=== PATIENT | male | born 1940 | race Caucasian/White ===

== ENCOUNTER 2017-09-06 10:46 | Outpatient (CLI) | payer MEDICARE ==
--- NOTE | 2017-09-06 13:34 | RAD ---
ESOPHOGRAM: History: Dysphagia. FINDINGS: Air contrast and single column barium evaluation of the esophagus show a very small pocket of contras t protruding anteriorly from the upper esophagus at approximately the C6 level. There are prominent n on-propulsive tertiary type contractions of the esophagus with a foal narrowing at the G3 junction. T here is marked delay in passage of liquid contrast. The margins of the narrowing are fairly smooth. Fluoro time equals 1.2 minutes. IMPRESSION: 1. High grade obstruction of the GE junction, favored to represent a stricture. Morphologic character istics are not suggested of an irregular mass. 2. Resultant tertiary contractions of the esophagus. Probable small [place] diverticulum fro m the anterior aspect of the upper esophagus. POS: [facility]
== END 2017-09-06 10:47 | disposition home or self-care (01) ==
LOC: RAD 10:46
PROVIDERS: ATTEND Otolaryngology Plastic Surgery within the Head & Neck
DX: R13.10 Dysphagia, unspecified (principal)
CPT/HCPCS: 74220

== ENCOUNTER 2017-09-24 11:18 | Outpatient (CLI) | payer MEDICARE ==
[2017-09-24] MEDS ORDERED: ISOVUE-370 76%-LOCM 1 ML ONE (11:26)
== END 2017-09-24 11:19 | disposition home or self-care (01) ==
LOC: BICCT 11:18
PROVIDERS: ATTEND Internal Medicine Gastroenterology
DX: K22.9 Disease of esophagus, unspecified (principal)
CPT/HCPCS: 70491; 71260; 74160; 82565

== ENCOUNTER 2017-12-24 19:39 | Inpatient (IN) | payer MEDICARE ==
[2017-12-24 20:22] LABS: #Basophils 0.1 thou/uL (0.0-0.2); #Eosinphils 0.1 thou/uL (0.0-0.7); #Lymphocytes 1.5 thou/uL (1.20-3.40); #Monocytes 0.7 thou/uL (0.11-0.59); #Neutrophils 7.8 thou/uL (1.40-6.50); %Basophils 0.6 % (0.0-1.0); %Eosinophils 0.9 % (0.0-10.0); %Lymphocytes 14.8 % (21.0-51.0); %Monocytes 6.9 % (0.0-10.0); %Neutrophils 76.8 % (42.0-75.0); Hemoglobin 12.6 g/dL (14.0-18.0); Mean Corpuscular HGB CONC 34.1 g/dL (32.0-36.0); Mean Corpuscular Hemoglobin 33.5 pg (27.0-31.0); Mean Corpuscular Volume 98.1 fL (78.0-98.0); Mean Platelet Volume 10.1 fL (7.4-10.4); Platelet Count 228 thou/uL (130-400); RBC Distribution Width 16.1 % (11.5-14.5); Red Blood Cell (RBC) Count 3.77 mill/uL (4.70-6.10); White Blood Cell (WBC) Count 10.1 thou/uL (4.8-10.8)
[2017-12-24 20:43] LABS: ALT (SGPT) 37 U/L (8-55); AST (SGOT) 28 U/L (5-34); Albumin 4.1 g/dL (3.4-4.8); Alkaline Phosphatase 57 U/L (40-150); Anion Gap 26 mmol/L (10-20); Bilirubin, Total 0.6 mg/dL (0.2-1.2); Calc. Creatinine Clearance 0 mL/min (70-130); Calcium 10.3 mg/dL (7.8-10.44); Carbon Dioxide 17 mmol/L (23-31); Chloride 101 mmol/L (98-107); Estimated GFR-MDRD 13; Globulin 4.1 g/dL (2.4-3.5); Glucose 189 mg/dL (83-110); Potassium 5.2 mmol/L (3.5-5.1); Protein, Total 8.2 g/dL (5.8-8.1); Sodium 139 mmol/L (136-145)
[2017-12-24 20:55] LABS: BUN (Urea Nitrogen) 140 mg/dL (8.4-25.7)
--- NOTE | 2017-12-24 20:57 | RAD ---
SINGLE VIEW OF THE CHEST: 12/24/17 COMPARISON: None. HISTORY: Weakness and fall. FINDINGS: Single view of the chest shows a normal sized cardiomediastinal silhouette. There is no evidence of c onsolidation, mass, or pleural effusion. Degenerative changes are seen in the spine and shoulders. IMPRESSION: No evidence of acute cardiopulmonary disease. POS: [facility]
[2017-12-24 20:58] LABS: CKMB 3.3 ng/mL (0-6.6); Troponin I 0.085 ng/mL (< 0.028)
[2017-12-24] MEDS ORDERED: Norepinephrine 8 MG/0.9% NS 250 ML ONE (21:40)
--- NOTE | 2017-12-24 22:08 | RAD ---
SINGLE VIEW OF THE CHEST: 12/24/17 COMPARISON: 12/24/17 at 8:43 p.m. HISTORY: Central line placement. FINDINGS: Single view of the chest shows a normal sized cardiomediastinal silhouette A right IJ central venous catheter is seen with its tip in the superior vena cava. No pneumothorax is seen. There is no evidenc e of consolidation, mass or pleural effusion. IMPRESSION: Status post central line placement without evidence of complication. POS: [facility]
[2017-12-24] MEDS ORDERED: methylPREDNISolone Sod Succ/PF 125 MG/2 ML VIAL ONE (22:41)
[2017-12-24] MEDS ORDERED: Piperacillin/Tazobactam 4.5 GM VIAL ONE (22:41)
[2017-12-25 00:52] LABS: Lactic Acid 2.2 mmol/L (0.5-2.2)
[2017-12-25] MEDS ORDERED: Acetaminophen 325 MG TAB PO PRN (01:16)
[2017-12-25] MEDS ORDERED: Ondansetron HCl/PF 4 MG/2 ML Vial IVP PRN (01:16)
[2017-12-25 02:19] VITALS: BMI 23.4
[2017-12-25] MEDS: Sodium Chloride 0.9% 1,000 ML IV SCH ×4 (02:31→20:46)
[2017-12-25] MEDS ORDERED: Norepinephrine 8 MG/250 ML BAG IVPB PRN (02:55)
[2017-12-25] MEDS ORDERED: HYDROcodone/Acetaminophen 10/325 mg Tablet PO PRN (04:41)
[2017-12-25] MEDS ORDERED: Aspirin 325 MG TAB PO PRN (04:41)
[2017-12-25] MEDS ORDERED: ALPRAZolam 0.5 MG TAB PO PRN (04:41)
[2017-12-25 05:26] LABS: #Lymphocytes 0.4 thou/uL (1.20-3.40); #Monocytes 0.1 thou/uL (0.11-0.59); #Neutrophils 11.1 thou/uL (1.40-6.50); %Eosinophils 0.4 % (0.0-10.0); %Lymphocytes 3.6 % (21.0-51.0); %Monocytes 0.9 % (0.0-10.0); %Neutrophils 95.1 % (42.0-75.0); Hemoglobin 11.9 g/dL (14.0-18.0); Mean Corpuscular Hemoglobin 33.2 pg (27.0-31.0); Mean Corpuscular Volume 97.8 fL (78.0-98.0); Platelet Count 212 thou/uL (130-400); RBC Distribution Width 16.4 % (11.5-14.5); Red Blood Cell (RBC) Count 3.58 mill/uL (4.70-6.10); White Blood Cell (WBC) Count 11.7 thou/uL (4.8-10.8)
[2017-12-25 05:41] LABS: Anion Gap 20 mmol/L (10-20); Calc. Creatinine Clearance 19 mL/min (70-130); Calcium 9.1 mg/dL (7.8-10.44); Carbon Dioxide 17 mmol/L (23-31); Chloride 108 mmol/L (98-107); Estimated GFR-MDRD 18; Glucose 165 mg/dL (83-110); Potassium 5.2 mmol/L (3.5-5.1); Sodium 140 mmol/L (136-145)
[2017-12-25 05:48] LABS: Troponin I 0.066 ng/mL (< 0.028)
[2017-12-25 05:50] LABS: Bilirubin Negative (Negative); Blood, Urine Moderate (Negative); Clarity CLOUDY (Clear); Glucose, Urine (Dipstick) 250 mg/dL (Negative); Leukocyte Trace (Negative); Nitrite Negative (Negative); Protein, Urine (Dipstick) Trace mg/dL (Neg-Trace); Specific Gravity, Urine 1.012 (1.002-1.036); Urobilinogen 0.2 mg/dL (0.2-1.0)
[2017-12-25 05:53] LABS: BUN (Urea Nitrogen) 119 mg/dL (8.4-25.7); Bacteria/HPF None Seen HPF (None Seen); Hyaline Casts/LPF 0-3 HYALINE CAST LPF (0-3 Hyaline); Pathc Cast-AUWi Flag 0.72 (0-2.49); Squamous Epithelial 0-3 HPF (0-3)
[2017-12-25 06:00] LABS: Yeast-AUWi Flag 42.3 (0-25.0); Yeast-All Forms None Seen HPF (None Seen)
[2017-12-25] MEDS ORDERED: Piperacillin/Tazobactam 2.25 GM in Sodium Chloride 0.9% 100 ML IVPB SCH (06:00)
--- NOTE | 2017-12-25 06:43 | HP ---
PRIMARY CARE PHYSICIAN: Patient goes to [facility]. CODE STATUS: FULL CODE. TIME OF EVALUATION: 7:50 p.m. CHIEF COMPLAINT: Generalized weakness and inability to drink or eat. HISTORY OF PRESENT ILLNESS: This is a 77-year-old male patient. The patient has a past medical history of esophageal cancer. The patient has been treated before by Dr. Baird, Dr. Bacon and since previous admission the patient tolerated the meals p.o.; however, as of now, he has got to the point that he has been unable to drink or eat, not even liquids, and has had continuously vomiting or bringing up all of the meals that he tries at home. He also reported he has been having a shocking sensation when he eats, that has been severe, does not get better, and he presented with severe weakness, dehydration. I have discussed goals of care with the patient and he reported that he is not ready to at this point that he would like to have a better quality of life at this point. He is also considering the possibility for a PEG tube. As a note, the patient is mentally very clear and coherent, he understands his disease, but he wants to continue receiving medical treatment with goals to have the best life possible. Symptoms are severe, no alleviating factors. REVIEW OF SYSTEMS: CONSTITUTIONAL: No fever, no chills. The patient has generalized weakness. RESPIRATORY: The patient has a cough with choking episode when eating, no sputum production, the patient had shortness of breath. CARDIOVASCULAR: No chest pain or palpitations. GASTROINTESTINAL: The patient had nausea, vomiting, no diarrhea, no abdominal pain. RE EXAMINER: No dizziness, headache or feeling lightheaded. GENITOURINARY: No burning on urination. EXTREMITIES: No leg swelling. All other systems were reviewed and negative except for the findings mentioned above. PAST MEDICAL HISTORY: Has been positive for TIA, PAD, esophageal cancer, hypertension, high cholesterol. PSYCH HISTORY: The patient has a history of anxiety and depression. FAMILY HISTORY: The patient has a history of mother healthy and father diabetic. ALLERGIES: No known drug allergies. REPORTED MEDICATIONS: Prinivil, simvastatin. PHYSICAL EXAMINATION: VITAL SIGNS: On presentation, blood pressure 75/49 with heart rate 103, respiratory rate of 20, temperature 97.6, pain 10/10, oxygen saturation 93. GENERAL APPEARANCE: The patient is alert, well oriented, in good mood, no acute distress. HEENT: Eyes; normal conjunctivae, very dry oral mucosa. Anicteric. NECK: No JVD. RESPIRATORY: Bilateral air entry. No rales, no wheezing. Symmetric expansion. CARDIOVASCULAR: The patient was tachycardic, hypotensive. No murmurs, no gallop, no edema. ABDOMEN: Soft, normal bowel sounds. MUSCULOSKELETAL: Normal range of motion and strength. No tenderness. SKIN: Warm, intact, dry, no redness. Peripheral pulses are present. Capillary refill seems to be intact. NEUROLOGIC: Baseline sensory. No evidence of any new focal weakness. Baseline speech. Cranial nerves seems to be intact. PSYCHIATRIC: The patient is in a good mood. No anxiety, oriented, optimal judgment. EKG was discussed with the performing physician from the ER. The patient has sinus tachycardia with a rate of 130, with complete right bundle branch block, QT corrected 456. It is mildly prolonged for a male patient. Radiology interpretation; chest x-ray was negative for any cardiopulmonary process. LABORATORY DATA: Labs were reviewed. The patient has a white count of 10, hemoglobin 12, MCV 98, platelet count 228, neutrophils 76. Sodium 139, potassium 5.2, chloride 101, carbon dioxide 17, anion gap 26, BUN 140, creatinine 4.45, GFR 13, glucose 186. Lactic acid on presentation 4.1, repeat 12.2, calcium 10.3, magnesium 1.6, total bilirubin 0.6, AST 28, ALT 37, alkaline phosphatase 57, CK 671 with first troponin 0.085. ASSESSMENT AND PLAN: The patient will be placed in the hospital with following medical problems: 1. Shock, most likely hypovolemic due to dehydration and poor oral intake secondary to esophageal stricture due to cancer. The patient has received significant amount of fluids, patient had been placed on vasopressors in the ER. We will continue for now, we will continue hydration and we will taper down the vasopressors if possible. Other possibilities of the septic shock given this is an immunocompromised host, for that reason he was covered with antibiotics, we will follow cultures, will adjust treatment as needed. 2. Severe dehydration, likely secondary to poor oral intake for weeks, the patient has been unable to eat due to esophageal cancer, treatment as below. 3. Dysphagia, the patient is unable to even drink fluids, for that reason, likely got dehydrated, and has been with very poor nutrition. GI has been consulted for recommendations to see if any palliative treatment can be offered , otherwise have discussed with the patient possibility for PEG tube placement or treatment. The patient is going to evaluate the possibility. 4. Severe lactic acidosis with lactic acid 4.1, ____ 2.2, this could be secondary to persistent hypotension and physical hypoxia, might be also secondary to possibility of underlying sepsis, treatment as above. 5. Acute kidney injury. The patient has a creatinine of 4.5, and previous admission was normal, GFR is 13. The patient has received aggressive hydration. We will monitor kidney function, if not recovering might need Nephrology for evaluation and assistance with this case. 6. Hyperkalemia. Potassium 5.2, this is mild, no need for acute intervention, patient already getting aggressive hydration, this is likely secondary to acute kidney injury. 7. Borderline troponin of 0.085, we will trend troponins, this is likely secondary to a [id number] elevation myocardial infarction x2. Due to persistent hypotension and demand ischemia. Anion gap metabolic acidosis likely secondary to acute kidney injury, patient has received aggressive hydration. We will monitor. Will adjust treatment as needed. 8. Deep venous thrombosis prophylaxis. 9. Esophageal cancer. The patient has had treatment in the past with Dr. Bacon, patient will need to be seen, and further goals of care to be discussed. The patient reported that he wants medical treatment, but the possibilities are going to be mostly related to Dr. Bacon opinion. The patient could also benefit from Palliative Care consult. 10. Uncontrolled hypertension. Patient presented with hypotension, we will reconcile home meds, will not treat aggressively due to risk for shock. CHLOÉ
--- NOTE | 2017-12-25 06:51 | PDOC.PULCN ---
<Patricia Alves - Last Filed: 12/25/17 10:42> Pulmonology Consult: HPI - Date of Consult Date: 12/25/17 Time: 08:30 - Consult Details Reason for Consult: ICU Admission Requesting Physician: Dr. Youngblood, ED Physician - History of Present Illness HPI: KAL HOUGH is a 77 year-old M with PMH of esophageal cancer diagnosed 3 months ago, s/p chemo and radiation treatment who presented to ED for generalized weakness, poor appetite, and dysphagia. He follows with Dr. Bacon, oncology, and Dr. Baird, GI. His f/u appt was scheduled for Jan 06. Over the course of the last month, son and patient report that he has had a severe decline in functional status. He used to walk up to 25ft with walker and is now reliant on help for most all ADL's, even difficulty with standing on his own. Due to his continued dysphagia, he has not been able to eat or drink much at all. In the ED he was found to have hypotension (70's/40's) which did not respond to 2L NS, therefore Levophed was started. Pulmonology Consult: ROS - Review of Systems Constitutional: negative: fever, chills Cardiovascular: negative: chest pain, palpitations, edema, light headedness Respiratory: cough. negative: bloody sputum, congestion, chest soreness, chest tightness, pain on deep breathing, short of breath Pulmonology Consult: PMH Source: patient, family Past Medical History: 1. Esophageal cancer 2. Hx of TIA 3. PAD 4. HTN 5. HLD 6. Anxiety 7. Depression - Family History Family history: reviewed and not pertinent - Social History Smoking Status: Former smoker (quit 4 days ago) Alcohol Use: heavy (Has not been drinking since dx of esophageal cancer. Used to drink "several" beers per day.) Drug Use History: none Living Situation: independent Pulmonology Consult: Meds - Medications MAR Reviewed: Yes Medications: Current Medications Acetaminophen (Tylenol) 650 mg PO Q4H PRN PRN Reason: Headache/Fever or Pain Hydrocodone Bitart/Acetaminophen ([place] 10/325) 1 tab PO Q4H PRN PRN Reason: Moderate to Severe Pain (4-10) Alprazolam (Xanax) 0.5 mg PO BIDPRN PRN PRN Reason: Agitation Aspirin (Aspirin) 325 mg PO DAILYPRN PRN PRN Reason: Pain Clopidogrel Bisulfate (Plavix) 75 mg PO DAILY [facility] Heparin Sodium (Porcine) (Heparin) 5,000 units SC TID [facility] Sodium Chloride (Normal Saline 0.9%) 1,000 mls @ 100 mls/hr IV .Q10H [facility] Last Admin: 12/25/17 02:31 Dose: 1,000 mls Piperacillin Sod/Tazobactam (Sod 2.25 gm/ Sodium Chloride) 100 mls @ 200 mls/ hr IVPB Q8HR [facility] Last Admin: 12/25/17 05:47 Dose: 100 mls Norepinephrine Bitartrate (Levophed) 250 mls @ 0 mls/hr IVPB INF PRN; Protocol PRN Reason: TO KEEP SBP => 90, MAP => 65 Miscellaneous Medication (Pharmacy To Dose) 1 each IVPB PRN PRN PRN Reason: Pharmacy to dose Ondansetron HCl (Zofran) 4 mg IVP Q6H PRN PRN Reason: Nausea/Vomiting Pantoprazole Sodium (Protonix) 40 mg PO DAILY [facility] Simvastatin (Zocor) 40 mg PO DAILY [facility] Sodium Chloride (Flush - Normal Saline) 10 ml IVF Q12HR [facility] Sodium Chloride (Flush - Normal Saline) 10 ml IVF PRN PRN PRN Reason: Saline Flush - Allergies Allergies/Adverse Reactions: Allergies Allergy/AdvReac Type Severity Reaction Status Date / Time No Known Allergies Allergy Verified 12/25/17 03:50 Pulmonology Consult: PE - Physical Exam Constitutional: NAD Deviation from normal: resting comfortably, conversational HEENT: PERRLA, moist MMs Neck: no nodes Deviation from normal: R IJ in place with dry dressing Cardiovascular: RRR, no significant murmur Respiratory: clear to auscultation anteriorly (although breath sounds are distant) Gastrointestinal: soft, non-tender, no distention Musculoskeletal: no edema, pulses present Neurological: non-focal, moves all 4 limbs Deviation from normal: LLE strength 3/5 (baseline per patient due to PAD), RLE and UE 5/5 Psychiatric: normal affect, A&O x 3 Skin: cap refill <2 seconds Pulmonology Consult: Results - Labs Result Diagrams: 12/25/17 04:52 12/25/17 04:52 - Radiology Interpretation Chest x-ray Status: image reviewed by me, report reviewed by me Pulmonology Consult: A/P - Problem (1) Hypovolemic shock Current Visit: Yes Code(s): R57.1 - HYPOVOLEMIC SHOCK Status: Acute (2) Failure to thrive in adult Current Visit: Yes Status: Acute (3) Esophageal cancer Current Visit: Yes Status: Acute (4) LUCIANO (acute kidney injury) Current Visit: Yes Code(s): N17.9 - ACUTE KIDNEY FAILURE, UNSPECIFIED Status : Acute - Time Time: 50% of the time was spent in coordination of care (as documented) at patient's floor/unit and/or counseling patient. Time with Patient: greater than 50 minutes - Plan Plan: 1. Hypovolemic Shock 2/2 Failure to Thrive- Patient severely dehydrated. UOP 50ml/hr. Will continue maitenance IVF and Levophed. Wean levophed as tolerated. No source for infection so we will stop Abx. Multiple electrolyte abnormalities likely related to this, will rehydrate and continue to monitor. 2. Esophageal Cancer- unsure if any improvement after chemo/radiation. Dr. Bacon and Dr. Baird have been consulted. Patient currently unsure if he would like to continue curative measures. Discussed need for PEG tube vs hospice. Palliative care has also been consulted to discuss further. 3. LUCIANO 2/2 Prerenal Azotemia- Cr has downtrended from 4.4 to 3.4 with a baseline of 0.9. Will continue IVF. Lines: R IJ (12/24), peripheral x2 (12/24) Code Status: Full Specialists: Oli (GI)Jordi (Onc) IVF: NS @ 100ml/hr DVT PPx: Lovenox GI PPx: Protonix <[id number] M - Last Filed: 12/27/17 16:58> Pulmonology Consult: HPI - History of Present Illness HPI: KAL HOUGH is a 77 year-old M Pulmonology Consult: Meds - Medications Medications: Current Medications Acetaminophen (Tylenol) 650 mg PO Q4H PRN PRN Reason: Headache/Fever or Pain Hydrocodone Bitart/Acetaminophen ([place] 10/325) 1 tab PO Q4H PRN PRN Reason: Severe Pain (7-10) Hydrocodone Bitart/Acetaminophen ([place] 5/325) 1 tab PO Q4H PRN PRN Reason: Moderate Pain (4-6) Last Admin: 12/26/17 17:14 Dose: 1 tab Al Hydroxide/Mg Hydroxide (Maalox) 15 ml PO Q4H PRN PRN Reason: Heartburn or Indigestion Alprazolam (Xanax) 0.5 mg PO BIDPRN PRN PRN Reason: Agitation Artificial Tears (Tears Naturale) 0 drop EA EYE PRN PRN PRN Reason: Dry Eyes Aspirin (Aspirin) 325 mg PO DAILYPRN PRN PRN Reason: Pain Clopidogrel Bisulfate (Plavix) 75 mg PO DAILY [facility] Last Admin: 12/27/17 09:27 Dose: 75 mg Guaifenesin (Robitussin Sf) 200 mg PO Q4H PRN PRN Reason: Cough Heparin Sodium (Porcine) (Heparin) 5,000 units SC TID [facility] Last Admin: 12/27/17 09:28 Dose: 5,000 units Hydralazine HCl (Apresoline) 10 mg SLOW IVP Q4H PRN PRN Reason: Systolic BP > 180 Sodium Chloride (1/2 Normal Saline) 1,000 mls @ 100 mls/hr IV .Q10H [facility] Last Admin: 12/27/17 00:45 Dose: 1,000 mls Loperamide HCl (Imodium) 2 mg PO PRN PRN PRN Reason: Diarrhea/Loose Stools Loratadine (Claritin) 10 mg PO DAILYPRN PRN PRN Reason: Sinus Symptoms Magnesium Hydroxide (Milk Of Magnesium) 30 ml PO DAILYPRN PRN PRN Reason: Constipation Mineral Oil/White Petrolatum (Eucerin Cream) 0 gm TOP BIDPRN PRN PRN Reason: Dry Skin Ondansetron HCl (Zofran) 4 mg IVP Q6H PRN PRN Reason: Nausea/Vomiting Ondansetron HCl (Zofran Odt) 4 mg PO Q6H PRN PRN Reason: Nausea/Vomiting Pantoprazole Sodium (Protonix) 40 mg IVP Q12HR [facility] Last Admin: 12/27/17 09:28 Dose: 40 mg Phenol (Chloraseptic [place] 180 Ml Bot) 0 ml PO PRN PRN PRN Reason: Sore Throat Senna (Senokot) 2 tab PO HSPRN PRN PRN Reason: Constipation Simvastatin (Zocor) 40 mg PO DAILY [facility] Last Admin: 12/27/17 09:28 Dose: 40 mg Sodium Chloride (Flush - Normal Saline) 10 ml IVF Q12HR [facility] Last Admin: 12/27/17 09:30 Dose: Not Given Sodium Chloride (Flush - Normal Saline) 10 ml IVF PRN PRN PRN Reason: Saline Flush Last Admin: 12/27/17 09:31 Dose: 10 ml Sodium Chloride ([place] Nasal [place] 0.65%) 0 ml EA NARE QIDPRN PRN PRN Reason: Nasal Congestion Temazepam (Restoril) 15 mg PO HSPRN PRN PRN Reason: Insomnia Pulmonology Consult: Results - Labs Result Diagrams: 12/27/17 04:16 12/27/17 04:16 Pulmonology Consult: A/P - Time Time: 50% of the time was spent in coordination of care (as documented) at patient's floor/unit and/or counseling patient. Attending Addendum - Attending Addendum Date/Time: 12/27/17 251 I personally evaluated the patient and discussed the management with Dr. Alves. I agree with the History, Examination, Assessment and Plan documented above with any addition or exceptions noted below. 70 minutes have been devoted to this patient in various activities. I personally reviewed all imaging studies and laboratory data noted within this document. For fifty percent of this time, I was interacting with the patient at the bedside or coordinating care with the care team. For the remainder of the time I was immediately available to the patient in the hospital unit.
[2017-12-25] MEDS: Simvastatin 40 MG TAB PO SCH (08:40)
[2017-12-25] MEDS: Clopidogrel Bisulfate 75 MG TAB PO SCH (08:40)
[2017-12-25] MEDS: Heparin 5,000 UNITS/ML VIAL SC SCH ×3 (08:40→20:47)
--- NOTE | 2017-12-25 11:53 | PDOC.PN ---
- Subjective Encounter Start Date: 12/25/17 Encounter Start Time: 09:45 -: old records requested/rev Patient seen and examined. No new complaints. No overnight events pt is on levophed drip - Objective Resuscitation Status: Resuscitation Status FULL:Full Resuscitation MAR Reviewed: Yes Vital Signs & Weight: Vital Signs (12 hours) Temp Pulse Resp Pulse Ox 12/25/17 08:00 100 12/25/17 04:00 98.5 F 12/25/17 02:00 98 F 93 15 92 L Weight Weight 163 lb 5.8 oz Most Recent Monitor Data Heart Rate from ECG 81 NIBP 130/46 NIBP BP-Mean 73 Respiration from ECG 18 SpO2 100 I&O: 12/24/17 12/25/17 12/26/17 06:59 06:59 06:59 Intake Total 608 Output Total 350 Balance 258 Result Diagrams: 12/25/17 04:52 12/25/17 04:52 EKG Reviewed by me: Yes (nsr) Phys Exam - Physical Examination Constitutional: NAD HEENT: PERRLA, sclera anicteric dry MM Neck: no JVD, supple Respiratory: no wheezing, no rales, no rhonchi Cardiovascular: RRR, no significant murmur, no rub Gastrointestinal: soft, non-tender, no distention, positive bowel sounds Musculoskeletal: no edema, pulses present Neurological: non-focal, normal sensation Psychiatric: normal affect, A&O x 3 Skin: no rash, normal turgor Dx/Plan (1) Acute kidney failure Status: Acute (2) Demand ischemia Code(s): I24.8 - OTHER FORMS OF ACUTE ISCHEMIC HEART DISEASE Status: Acute (3) Failure to thrive in adult Status: Acute (4) Hyperkalemia Code(s): E87.5 - HYPERKALEMIA Status: Acute (5) Hypovolemic shock Code(s): R57.1 - HYPOVOLEMIC SHOCK Status: Acute (6) Lactic acidosis Code(s): E87.2 - ACIDOSIS Status: Acute (7) Severe dehydration Code(s): E86.0 - DEHYDRATION Status: Acute (8) UTI (urinary tract infection) Status: Suspected (9) Anemia of chronic disease Code(s): D63.8 - ANEMIA IN OTHER CHRONIC DISEASES CLASSIFIED ELSEWHERE Status : Chronic (10) Anxiety and depression Code(s): F41.9 - ANXIETY DISORDER, UNSPECIFIED; F32.9 - MAJOR DEPRESSIVE DISORDER, SINGLE EPISODE, UNSPECIFIED Status: Chronic (11) Dyslipidemia Code(s): E78.5 - HYPERLIPIDEMIA, UNSPECIFIED Status: Chronic (12) Dysphagia Code(s): R13.10 - DYSPHAGIA, UNSPECIFIED Status: Chronic (13) GERD (gastroesophageal reflux disease) Code(s): K21.9 - GASTRO-ESOPHAGEAL REFLUX DISEASE WITHOUT ESOPHAGITIS Status: Chronic (14) History of esophageal cancer Code(s): Z85.01 - PERSONAL HISTORY OF MALIGNANT NEOPLASM OF ESOPHAGUS Status: Chronic (15) Hypertension Code(s): I10 - ESSENTIAL (PRIMARY) HYPERTENSION Status: Chronic - Plan cont current plan of care * continue IVF * wean off levophed as tolerated * medication reviewed as below * symptomatic treatment * monitor renal function * will need peg tube this admission once pt makes decision. * follow urine culture result Review of Systems - Review of Systems ENT: negative: Ear Pain, Ear Discharge, Nose Pain, Nose Discharge, Nose Congestion, Mouth Pain, Mouth Swelling, Throat Pain, Throat Swelling, Other Respiratory: negative: Cough, Dry, Shortness of Breath, Hemoptysis, SOB with Excertion, Pleuritic Pain, Sputum, Wheezing Cardiovascular: negative: chest pain, palpitations, orthopnea, paroxysmal nocturnal dyspnea, edema, light headedness, other Gastrointestinal: negative: Nausea, Vomiting, Abdominal Pain, Diarrhea, Constipation, Melena, Hematochezia, Other Genitourinary: negative: Dysuria, Frequency, Incontinence, Hematuria, Retention , Other Musculoskeletal: negative: Neck Pain, Shoulder Pain, Arm Pain, Back Pain, Hand Pain, Leg Pain, Foot Pain, Other Skin: negative: Rash, Lesions, Gino, Bruising, Other - Medications/Allergies Allergies/Adverse Reactions: Allergies Allergy/AdvReac Type Severity Reaction Status Date / Time No Known Allergies Allergy Verified 12/25/17 03:50 Medications: Current Medications Acetaminophen (Tylenol) 650 mg PO Q4H PRN PRN Reason: Headache/Fever or Pain Hydrocodone Bitart/Acetaminophen ([place] 10/325) 1 tab PO Q4H PRN PRN Reason: Moderate to Severe Pain (4-10) Alprazolam (Xanax) 0.5 mg PO BIDPRN PRN PRN Reason: Agitation Aspirin (Aspirin) 325 mg PO DAILYPRN PRN PRN Reason: Pain Clopidogrel Bisulfate (Plavix) 75 mg PO DAILY [facility] Last Admin: 12/25/17 08:40 Dose: 75 mg Heparin Sodium (Porcine) (Heparin) 5,000 units SC TID [facility] Last Admin: 12/25/17 08:40 Dose: 5,000 units Sodium Chloride (Normal Saline 0.9%) 1,000 mls @ 100 mls/hr IV .Q10H [facility] Last Admin: 12/25/17 02:31 Dose: 1,000 mls Norepinephrine Bitartrate (Levophed) 250 mls @ 0 mls/hr IVPB INF PRN; Protocol PRN Reason: TO KEEP SBP => 90, MAP => 65 Last Admin: 12/25/17 08:52 Dose: 250 mls Miscellaneous Medication (Pharmacy To Dose) 1 each IVPB PRN PRN PRN Reason: Pharmacy to dose Ondansetron HCl (Zofran) 4 mg IVP Q6H PRN PRN Reason: Nausea/Vomiting Pantoprazole Sodium (Protonix) 40 mg PO DAILY [facility] Last Admin: 12/25/17 08:40 Dose: 40 mg Simvastatin (Zocor) 40 mg PO DAILY [facility] Last Admin: 12/25/17 08:40 Dose: 40 mg Sodium Chloride (Flush - Normal Saline) 10 ml IVF Q12HR [facility] Last Admin: 12/25/17 08:41 Dose: 10 ml Sodium Chloride (Flush - Normal Saline) 10 ml IVF PRN PRN PRN Reason: Saline Flush
--- NOTE | 2017-12-25 20:34 | CON ---
DATE OF CONSULTATION: 12/25/2017 REASON FOR CONSULTATION: Dysphagia, worsening; history of esophageal cancer, status post treatment; 40 pound weight loss in the last 4 weeks. HISTORY OF PRESENT ILLNESS: Mr. Contreras is a 77-year-old gentleman, who was diagnosed with esophagea l cancer by Dr. Alfonso Baird my partner in the outpatient EGD on 09/20/2017. The patient states since that time, he was treated with radiation and chemotherapy. This tumor was apparently proximal in the esophagus and was squamous cell at 21-26 cm from incisural orifice. He states he was evaluated by Ericka eubanks and they felt there was no involvement of the trachea or upper respiratory tract system. In any event, he finished his last radiation about 4 weeks ago. He is going to get one more course of chemo following that, but he was having problems with activities of daily living and hydration. He h ad been given a bunch of fluid when he came back in for chemo and that was drawn held and the patient 's son notes he was in the emergency room 2 weeks ago and had to be given 5 liters of fluid sec ondary to dehydration as he really was unable to eat at all or drink very much. Presently, he is abl e to drink liquids. He has no pain. He has no cough. He denies recent aspiration symptoms of cough ing or choking with swallowing or any recent pneumonia. The patient's son state they have discussed PEG tube placement a couple times with Oncology, but this has not been done yet. They are not know t he stage of his cancer, but states that it was not involving other organ just the esophagus. Here he came in with profound dehydration and hypotension. His creatinine was 4.5 and his BUN is 140, today they are 1.19 and 344, his potassium was 5.2, it is 5.2 today. He had a mildly elevated white count of 11.7 today, hemoglobin 11.8, platelet count of 212. He has had no diarrhea. He has had no overt signs of bleeding. He has had Hemoccult negative stool. He has blood cultures, which are pending. A chest x-ray was performed last night in the emergency room showed central line placement. No infi ltrate. A barium swallow in August showed a high-grade obstruction in the esophagus and he had a CT sca n 09/24/2017 showed infiltrating mass upper thoracic esophagus, T3-T4 level, that was concerned for i nvasion of the posterior wall of the trachea in that study. Again, the patient states Pulmonary did not find any obvious involvement of the pulmonary tree. PAST MEDICAL HISTORY: TIA; peripheral artery disease; esophageal cancer, squamous; hyperlipidemia; h ypertension. The patient states he had a history of coronary artery disease. PAST SURGICAL HISTORY: None. PSYCHIATRIC HISTORY: Depression, anxiety. FAMILY HISTORY: Noncontributory. ALLERGIES: None known MEDICATIONS: Prinivil and simvastatin. REVIEW OF SYSTEMS: Weight loss. No headaches, no chest pain, no cough, no dysuria. No frequency, n o urgency. No melena, no hematemesis, no abdominal pain, no prior abdominal surgeries. PRESENT MEDICATIONS: Protonix 40 p.o. daily, simvastatin, normal saline 100 an hour. PHYSICAL EXAMINATION: VITAL SIGNS: Temperature is 98.5, heart rate 82, blood pressure 112/47. HEENT: Oropharynx without lesions. NECK: Supple, without adenopathy or masses. Supraclavicular areas, no nodes. No umbilical nodes, n o inguinal nodes: No axillary nodes. LUNGS: Clear. HEART: Regular rate and rhythm without clicks or murmurs. ABDOMEN: Soft and nontender. There is no palpable hepatosplenomegaly. There are no scars in the up per abdomen. The abdomen is nondistended. EXTREMITIES: Reveal no clubbing, cyanosis or edema. LABORATORY STUDIES: White count 11.7, hemoglobin 11.9, platelet count 211. Electrolytes as noted ab ove. Liver function tests, protein was 8.2, albumin was 4.1. AST and ALT 28 and 37. ASSESSMENT: Severe dehydration secondary to poor oral intake related to esophageal squamous cell car cinoma, status post radiation and chemotherapy. Likely has a stricture from treatment effect. He co uld have residual cancer. He has got pretty dehydrated. It seems like he had 5 liters of fluid 2 we eks ago . At this time, he came with a BUN and creatinine of 140 and 4.5. He probably has a ve ry significant stricture. I think a PEG tube would be reasonable. I have discussed with the patient and the son the risks of the procedure also discussed the possibly that if he has a significant stri cture, we may not be able to get past it to place a PEG tube. RECOMMENDATIONS: 1. Esophagogastroduodenoscopy with possible PEG tube placement tomorrow. Risks, benefits and compli cations were discussed. 2. IV PPI q.12 hours. 3. I would increase his IV fluid rate. He is very dehydrated and wean his pressors. If he is not a ble to get off pressors, we will need to await until that is done before he has any type of interven tion as this was nonemergent.
[2017-12-25] MEDS: Pantoprazole 40 MG VIAL IVP SCH (20:46)
[2017-12-26 04:54] LABS: Anion Gap 13 mmol/L (10-20); BUN (Urea Nitrogen) 84 mg/dL (8.4-25.7); Calc. Creatinine Clearance 34 mL/min (70-130); Calcium 8.7 mg/dL (7.8-10.44); Carbon Dioxide 19 mmol/L (23-31); Chloride 115 mmol/L (98-107); Estimated GFR-MDRD 34; Glucose 98 mg/dL (83-110); Magnesium 1.2 mg/dL (1.6-2.6); Phosphorus 2.4 mg/dL (2.3-4.7); Potassium 4.2 mmol/L (3.5-5.1); Sodium 143 mmol/L (136-145)
[2017-12-26] MEDS: Sodium Chloride 0.9% 1,000 ML IV SCH ×2 (05:31→10:33)
[2017-12-26] MEDS ORDERED: Magnesium Sulfate 3 GM in Sodium Chloride 0.9% 100 ML IVPB SCH (08:00)
[2017-12-26] MEDS ORDERED: Loratadine 10 MG TAB PO PRN (09:26)
[2017-12-26] MEDS ORDERED: Loperamide HCl 2 MG CAP PO PRN (09:26)
[2017-12-26] MEDS ORDERED: Eucerin (Mineral Oil/Petrolatum,White) 30 gm Jar TOP PRN (09:26)
[2017-12-26] MEDS ORDERED: Mag-Al 1200 mg/1200 mg/30 ML UDCUP PO PRN (09:26)
[2017-12-26] MEDS ORDERED: Milk Of Magnesia 30 ML UDCUP PO PRN (09:26)
[2017-12-26] MEDS ORDERED: Chloraseptic Spray 180 ml Bottle PO PRN (09:26)
[2017-12-26] MEDS ORDERED: Temazepam 15 MG CAP PO PRN (09:26)
[2017-12-26] MEDS ORDERED: Ondansetron ODT 4 MG TAB PO PRN (09:26)
[2017-12-26] MEDS ORDERED: Senokot 8.6 MG TAB PO PRN (09:26)
[2017-12-26] MEDS ORDERED: Artificial Tears 18 DROP/0.9 ML EA EYE PRN (09:26)
[2017-12-26] MEDS ORDERED: hydrALAZINE 20 MG/ML VIAL SLOW IVP PRN (09:26)
[2017-12-26] MEDS ORDERED: Diabetic Tussin 200 MG/10 ML UDCUP PO PRN (09:26)
[2017-12-26] MEDS ORDERED: HYDROcodone/Acetaminophen 5/325 mg Tablet PO PRN (09:26)
[2017-12-26] MEDS ORDERED: Sodium Chloride 0.65% Nasal 44 ML BOT EA NARE PRN (09:26)
[2017-12-26] MEDS: Sodium Chloride 0.45% 1,000 ML IV SCH ×2 (09:28→18:42)
[2017-12-26] MEDS: Clopidogrel Bisulfate 75 MG TAB PO SCH (09:29)
[2017-12-26] MEDS: Pantoprazole 40 MG VIAL IVP SCH ×2 (09:30→21:19)
[2017-12-26] MEDS: Heparin 5,000 UNITS/ML VIAL SC SCH ×3 (09:30→21:19)
[2017-12-26] MEDS: Simvastatin 40 MG TAB PO SCH (09:31)
--- NOTE | 2017-12-26 10:27 | PDOC.PN ---
- Subjective Encounter Start Date: 12/26/17 Encounter Start Time: 09:30 Patient seen and examined. No new complaints. No overnight events - Objective Resuscitation Status: Resuscitation Status FULL:Full Resuscitation MAR Reviewed: Yes Vital Signs & Weight: Vital Signs (12 hours) Temp Pulse Resp BP BP Pulse Ox 12/26/17 08:00 97.9 F 72 18 114/68 100 12/26/17 07:00 98.2 F 79 16 144/81 H 100 12/26/17 04:00 98.3 F 12/26/17 00:00 98.6 F Weight Admit Weight 163 lb Weight 163 lb 5.8 oz Most Recent Monitor Data Heart Rate from ECG 79 NIBP 119/46 NIBP BP-Mean 90 Respiration from ECG 19 SpO2 100 I&O: 12/25/17 12/26/17 12/27/17 06:59 06:59 06:59 Intake Total 608 4137 Output Total 350 7 Balance 258 4130 Result Diagrams: 12/25/17 04:52 12/26/17 04:15 Phys Exam - Physical Examination Constitutional: NAD HEENT: PERRLA, moist MMs, sclera anicteric Neck: no JVD, supple Respiratory: no wheezing, no rales, no rhonchi Cardiovascular: RRR, no significant murmur, no rub Gastrointestinal: soft, non-tender, no distention, positive bowel sounds Musculoskeletal: no edema, pulses present Neurological: non-focal, normal sensation, moves all 4 limbs Psychiatric: normal affect, A&O x 3 Skin: no rash, normal turgor Dx/Plan (1) Acute kidney failure Status: Acute (2) Demand ischemia Code(s): I24.8 - OTHER FORMS OF ACUTE ISCHEMIC HEART DISEASE Status: Acute (3) Failure to thrive in adult Status: Acute (4) Hyperkalemia Code(s): E87.5 - HYPERKALEMIA Status: Acute (5) Hypovolemic shock Code(s): R57.1 - HYPOVOLEMIC SHOCK Status: Acute (6) Lactic acidosis Code(s): E87.2 - ACIDOSIS Status: Acute (7) Severe dehydration Code(s): E86.0 - DEHYDRATION Status: Acute (8) UTI (urinary tract infection) Status: Suspected (9) Anemia of chronic disease Code(s): D63.8 - ANEMIA IN OTHER CHRONIC DISEASES CLASSIFIED ELSEWHERE Status : Chronic (10) Anxiety and depression Code(s): F41.9 - ANXIETY DISORDER, UNSPECIFIED; F32.9 - MAJOR DEPRESSIVE DISORDER, SINGLE EPISODE, UNSPECIFIED Status: Chronic (11) Dyslipidemia Code(s): E78.5 - HYPERLIPIDEMIA, UNSPECIFIED Status: Chronic (12) Dysphagia Code(s): R13.10 - DYSPHAGIA, UNSPECIFIED Status: Chronic (13) GERD (gastroesophageal reflux disease) Code(s): K21.9 - GASTRO-ESOPHAGEAL REFLUX DISEASE WITHOUT ESOPHAGITIS Status: Chronic (14) History of esophageal cancer Code(s): Z85.01 - PERSONAL HISTORY OF MALIGNANT NEOPLASM OF ESOPHAGUS Status: Chronic (15) Hypertension Code(s): I10 - ESSENTIAL (PRIMARY) HYPERTENSION Status: Chronic - Plan cont current plan of care, plan discussed w/ family * renal function improving * today plan for PEG * pt education regarding PEG given * medication reviewed as below * symptomatic treatment * discussed with son on phone * repeat labs tomorrow. * replace magnesium Review of Systems - Review of Systems Eyes: negative: Pain, Vision Change, Conjunctivae Inflammation, Eyelid Inflammation, Redness, Other ENT: negative: Ear Pain, Ear Discharge, Nose Pain, Nose Discharge, Nose Congestion, Mouth Pain, Mouth Swelling, Throat Pain, Throat Swelling, Other Respiratory: negative: Cough, Dry, Shortness of Breath, Hemoptysis, SOB with Excertion, Pleuritic Pain, Sputum, Wheezing Cardiovascular: negative: chest pain, palpitations, orthopnea, paroxysmal nocturnal dyspnea, edema, light headedness, other Gastrointestinal: negative: Nausea, Vomiting, Abdominal Pain, Diarrhea, Constipation, Melena, Hematochezia, Other Genitourinary: negative: Dysuria, Frequency, Incontinence, Hematuria, Retention , Other Musculoskeletal: negative: Neck Pain, Shoulder Pain, Arm Pain, Back Pain, Hand Pain, Leg Pain, Foot Pain, Other Skin: negative: Rash, Lesions, Gino, Bruising, Other - Medications/Allergies Allergies/Adverse Reactions: Allergies Allergy/AdvReac Type Severity Reaction Status Date / Time No Known Allergies Allergy Verified 12/25/17 03:50 Medications: Current Medications Acetaminophen (Tylenol) 650 mg PO Q4H PRN PRN Reason: Headache/Fever or Pain Hydrocodone Bitart/Acetaminophen ([place] 10/325) 1 tab PO Q4H PRN PRN Reason: Severe Pain (7-10) Hydrocodone Bitart/Acetaminophen ([place] 5/325) 1 tab PO Q4H PRN PRN Reason: Moderate Pain (4-6) Al Hydroxide/Mg Hydroxide (Maalox) 15 ml PO Q4H PRN PRN Reason: Heartburn or Indigestion Alprazolam (Xanax) 0.5 mg PO BIDPRN PRN PRN Reason: Agitation Artificial Tears (Tears Naturale) 0 drop EA EYE PRN PRN PRN Reason: Dry Eyes Aspirin (Aspirin) 325 mg PO DAILYPRN PRN PRN Reason: Pain Clopidogrel Bisulfate (Plavix) 75 mg PO DAILY [facility] Last Admin: 12/26/17 09:29 Dose: Not Given Guaifenesin (Robitussin Sf) 200 mg PO Q4H PRN PRN Reason: Cough Heparin Sodium (Porcine) (Heparin) 5,000 units SC TID [facility] Last Admin: 12/26/17 09:30 Dose: Not Given Hydralazine HCl (Apresoline) 10 mg SLOW IVP Q4H PRN PRN Reason: Systolic BP > 180 Sodium Chloride (1/2 Normal Saline) 1,000 mls @ 100 mls/hr IV .Q10H [facility] Last Admin: 12/26/17 09:28 Dose: 1,000 mls Loperamide HCl (Imodium) 2 mg PO PRN PRN PRN Reason: Diarrhea/Loose Stools Loratadine (Claritin) 10 mg PO DAILYPRN PRN PRN Reason: Sinus Symptoms Magnesium Hydroxide (Milk Of Magnesium) 30 ml PO DAILYPRN PRN PRN Reason: Constipation Mineral Oil/White Petrolatum (Eucerin Cream) 0 gm TOP BIDPRN PRN PRN Reason: Dry Skin Ondansetron HCl (Zofran) 4 mg IVP Q6H PRN PRN Reason: Nausea/Vomiting Ondansetron HCl (Zofran Odt) 4 mg PO Q6H PRN PRN Reason: Nausea/Vomiting Pantoprazole Sodium (Protonix) 40 mg IVP Q12HR [facility] Last Admin: 12/26/17 09:30 Dose: 40 mg Phenol (Chloraseptic [place] 180 Ml Bot) 0 ml PO PRN PRN PRN Reason: Sore Throat Senna (Senokot) 2 tab PO HSPRN PRN PRN Reason: Constipation Simvastatin (Zocor) 40 mg PO DAILY [facility] Last Admin: 12/26/17 09:31 Dose: 40 mg Sodium Chloride (Flush - Normal Saline) 10 ml IVF Q12HR [facility] Last Admin: 12/26/17 09:31 Dose: 10 ml Sodium Chloride (Flush - Normal Saline) 10 ml IVF PRN PRN PRN Reason: Saline Flush Sodium Chloride ([place] Nasal [place] 0.65%) 0 ml EA NARE QIDPRN PRN PRN Reason: Nasal Congestion Temazepam (Restoril) 15 mg PO HSPRN PRN PRN Reason: Insomnia
[2017-12-26] MEDS ORDERED: Lidocaine 1% PF 5 ML VIAL ONE (10:37)
[2017-12-26] MEDS ORDERED: PROPOFOL 200 MG/20 ML VIAL ONE (10:37)
--- NOTE | 2017-12-26 13:48 | PRG ---
DATE OF SERVICE: 12/26/2017 SERVICE: Pulmonary Medicine INTERVAL HISTORY: The patient is doing fine from a respiratory standpoint. He is breathing comforta briseyda. There has been no interval change to his condition. He has decided to move forward with a PEG tube. It is planned for tomorrow. His IV fluids were interrupted on transitioned to the floor. Scott t being said, we are in the process of getting them restarted. He remains profoundly volume down. T hat being said, most of his depletion is likely intracellular at this point. PHYSICAL EXAMINATION: VITAL SIGNS: Afebrile, pulse 72, blood pressure 114/68, respirations 18, saturation 100% on room air . GENERAL: The patient is awake, alert, in no apparent distress. LUNGS: Decent air entry. There is no prolonged expiratory phase, wheezing, rhonchi or crackles. HEART: Normal rate, regular. ABDOMEN: Soft, nontender, nondistended. Bowel sounds are positive. MUSCULOSKELETAL: No cyanosis or clubbing. There is no pitting. There is skin tenting throughout. GENITOURINARY: No [place]. NEUROLOGIC: Grossly nonfocal. LABORATORY DATA: Creatinine is down trending to 1.94, BUN 84. Bicarbonate is improved to 19. Basic metabolic profile is otherwise unremarkable. Chloride and sodium are both up trending dramatically. Magnesium 1.2. Blood cultures x2 and urine cultures negative to date. ASSESSMENT: 1. Hypovolemic shock. 2. Acute kidney injury secondary to prerenal causes. 3. Esophageal cancer. 4. Severe protein-calorie malnutrition. DISCUSSION AND PLAN: I will put the patient on 1/2 normal saline. We will go to 100 an hour. At th is point, his intravascular and extracellular space has been repeated (it is 8 liters up for the hos pital stay). We will need to start to fill his intracellular space. We are going to switch him over to hypotonic fluid to facilitate this. This process will likely take several days. At this point, however, he has no further requirements for inpatient Pulmonary or Critical Care opinion. As such, I will sign off. If he has any significant deterioration in function, please give me a phone call.
[2017-12-26] MEDS ORDERED: CEFAZOLIN/Water 2 GM/20 ML SYRINGE ONE (14:30)
--- NOTE | 2017-12-26 17:12 | CON ---
DATE OF CONSULTATION: 12/25/2017 REASON FOR CONSULTATION: Esophageal cancer. HISTORY OF PRESENT ILLNESS: A 77-year-old male with localized esophageal cancer status post concurrent chemotherapy and radiation with carboplatin and Taxol completed on 11/21/2017, presenting with severe dehydration, poor p.o. intake, and fatigue. In the ER, the patient was found to be in shock and received aggressive fluid resuscitation and placed on vasopressors. Patient is currently admitted to the ICU. Patient states he has not been able to eat any solid food for a long time and most of the liquids that he drinks he coughs back up. He states he has lost anywhere from 20-40 pounds in the last couple of months. He had an appointment on 01/06/[address] Vick of Radiation Oncology to evaluate for response to therapy. The patient is scheduled tomorrow for a PEG tube and EGD. He currently complains of mild central chest pain since beginning radiation that he says feels like his esophagus is raw or sun burnt. He does state that he feels better since coming into the hospital. He currently denies any other pain, but still has a cough, productive of clear sputum. His nurse states that he has been drinking and keeping liquids down since being admitted to the floor. REVIEW OF SYSTEMS: CONSTITUTIONAL: No fever or chills. Positive fatigue. RESPIRATORY: Cough, choking sensation, denies shortness of breath. CARDIOVASCULAR: No chest pain or palpitations. GASTROINTESTINAL: No nausea, vomiting, diarrhea, constipation or abdominal pain. NEUROLOGIC: No numbness, tingling, or weakness. GENITOURINARY: No burning on urination. EXTREMITIES: No leg swelling. HEMATOLOGIC: No bruising or bleeding. PAST MEDICAL HISTORY: Esophageal cancer, TIA, peripheral arterial disease, hypertension, and hyperlipidemia. PSYCHIATRIC HISTORY: Anxiety and depression. FAMILY HISTORY: Diabetes in his father. ALLERGIES: No known drug allergies. CURRENT MEDICATIONS: Reviewed. PHYSICAL EXAMINATION: VITAL SIGNS: On presentation, blood pressure 75/49, pulse 103, respirations 20 , temperature 97.6, pain 10/10, oxygen saturation 93%. On examination today, blood pressure 110/70 on Levophed. GENERAL APPEARANCE: The patient resting comfortably in bed in no acute distress. HEENT: Normal conjunctivae. Anicteric. NECK: No JVD. RESPIRATORY: Clear to auscultation bilaterally. No wheezing. CARDIOVASCULAR: Regular rhythm and rate. No murmurs, rubs, or gallops. ABDOMEN: Soft, nondistended, nontender. MUSCULOSKELETAL: Normal range of motion. SKIN: Warm, dry, and intact. No rash. NEUROLOGIC: Cranial nerves II through XII grossly intact. PSYCHIATRIC: Awake, alert and oriented x3. LABORATORY DATA: White blood cells 11.2, hemoglobin 11.9, hematocrit 35.1, platelets 212, BUN 140, creatinine 4.45 on admission, it has trended down to BUN 119 and and creatinine 3.40 on 12/25/2017. Stool for occult blood negative. IMAGING DATA: Chest x-ray shows no signs of pneumonia. ASSESSMENT AND PLAN: A 77-year-old male with esophageal cancer status post concurrent chemotherapy and radiation finished on 11/21/2017, admitted for shock secondary to severe dehydration and poor p.o. intake without any signs of infection. The patient had localized esophageal cancer, which was treated with curative intent. The patient was scheduled to see Dr. Vick, Radiation Oncology for reassessment of disease status. For the last couple months, the patient has had difficulty swallowing even liquids. However, it is unclear if this is due to progression of cancer. This could be related to radiation changes such as inflammation and necrosis in the esophagus. However, cannot rule out progression of disease. The patient is scheduled for PEG tube tomorrow and EGD concurrently to evaluate the esophagus. Due to shock, patient has severe acute kidney injury, which has improved with Levophed and aggressive fluid resuscitation. Lactic acidosis has also resolved with the above treatment. Patient is now tolerating liquids with minimal regurgitation. Patient will require EGD and scans for restaging once acute event has resolved. Would like acute kidney injury to resolve prior to administration of IV contrast for CAT scan. MTDD
--- NOTE | 2017-12-26 20:06 | OP ---
DATE OF PROCEDURE: 12/26/2017 GI ENDOSCOPY NOTE SURGEON: Darek Bermudez M.D. CAR STOWER SURGEON: None. PROCEDURE: Esophagogastroduodenoscopy with PEG tube placement and esophageal biopsies. INDICATIONS: 1. Esophageal dysphagia. 2. History of esophageal squamous cell carcinoma, status post multiple radiation treatments. 3. He presented with worsening dysphagia, poor oral intake and severe dehydration. MEDICATIONS: 1. Ancef 2 grams IV. 2. See anesthesia record. FINDINGS: After discussion of the risks, benefits and alternatives of the procedure, informed consen t was obtained and witnessed. Pre-endoscopic cardiopulmonary examination was satisfactory. Timeout was performed before sedation was achieved. Sedation was achieved with anesthesia assistance in the endoscopy unit. A Pentax adult upper endoscope was placed into the oropharynx and passed through the cricopharyngeus under direct visualization with the patient in the supine position. In the proximal esophagus at 21 cm from the incisors, there is a shallow ulceration. The tissue here is friable and somewhat fibrotic. It appears likely secondary to radiation injury, but I cannot exclude residual u nderlying malignancy. I took biopsies from the ulcer for histopathology. I then continued with the examination. The middle and distal esophagus appeared normal as well as the GE junction. The endosc ope was advanced into the stomach. Forward and retroflexed views of the entire gastric mucosa were o btained. The gastric mucosa appeared normal. The endoscope was passed through the pylorus and into the first and second portions of the duodenum which appeared normal. At this point, we located a jesus table site for PEG placement in the left upper quadrant using 1:1 pressure and transillumination meth ods. The site was prepped and draped in a sterile fashion. The site was then anesthetized with subc utaneous lidocaine. A 1 cm vertical incision was made at the site and then the introducer needle and catheter were introduced transcutaneously into the gastric lumen. At this point, a wire was passed through the catheter and grasped with a snare, which was then withdrawn out of the patient's mouth. A 20-[place] traction PEG tube was then affixed to the wire and pulled into position in the standard f ashion without difficulty. The endoscope was passed back into the stomach and the internal bumper wa s found to be in good position. The external bumper was affixed at a distance of 3.5 cm. The clamp and external ports were affixed to the PEG tube and the procedure was completed. The patient tolerat ed the procedure well. There were no immediate post-procedure complications. IMPRESSION: 1. Ulcer in the upper esophagus at 21 cm, representing residual malignancy versus post-radiation fib rosis. Biopsies obtained. 2. Successful placement of 20-[place] traction PEG tube to the left upper quadrant, with external bum per at 3.5 cm. RECOMMENDATIONS: 1. Follow up pathology on the esophageal ulcer biopsies. 2. May use PEG tube for medications now. 3. May use PEG tube for feeds in 4 hours. 4. We will plan to come by tomorrow to check on the PEG site and likely loosen the external bumper.
[2017-12-27] MEDS: Sodium Chloride 0.45% 1,000 ML IV SCH ×3 (00:45→16:20)
[2017-12-27 05:26] LABS: #Monocytes 0.7 thou/uL (0.11-0.59); #Neutrophils 6.2 thou/uL (1.40-6.50); %Basophils 0.2 % (0.0-1.0); %Eosinophils 0.6 % (0.0-10.0); %Lymphocytes 12.3 % (21.0-51.0); %Monocytes 8.3 % (0.0-10.0); %Neutrophils 78.7 % (42.0-75.0); Hemoglobin 10.9 g/dL (14.0-18.0); Mean Corpuscular HGB CONC 33.9 g/dL (32.0-36.0); Mean Corpuscular Hemoglobin 33.2 pg (27.0-31.0); Mean Platelet Volume 10.2 fL (7.4-10.4); Platelet Count 153 thou/uL (130-400); RBC Distribution Width 16.1 % (11.5-14.5); Red Blood Cell (RBC) Count 3.29 mill/uL (4.70-6.10); White Blood Cell (WBC) Count 7.9 thou/uL (4.8-10.8)
[2017-12-27 05:53] LABS: Anion Gap 12 mmol/L (10-20); BUN (Urea Nitrogen) 48 mg/dL (8.4-25.7); Calc. Creatinine Clearance 51 mL/min (70-130); Calcium 8.7 mg/dL (7.8-10.44); Carbon Dioxide 22 mmol/L (23-31); Chloride 111 mmol/L (98-107); Estimated GFR-MDRD 54; Glucose 92 mg/dL (83-110); Magnesium 1.6 mg/dL (1.6-2.6); Phosphorus 1.6 mg/dL (2.3-4.7); Potassium 3.9 mmol/L (3.5-5.1); Sodium 141 mmol/L (136-145)
--- NOTE | 2017-12-27 08:54 | PDOC.PN ---
- Subjective Encounter Start Date: 12/27/17 Encounter Start Time: 07:25 peg tube placed, renal function improving - Objective Resuscitation Status: Resuscitation Status FULL:Full Resuscitation MAR Reviewed: Yes Vital Signs & Weight: Vital Signs (12 hours) Temp Pulse Resp BP Pulse Ox 12/27/17 07:22 98.1 F 75 16 116/65 97 Weight Admit Weight 163 lb Weight 163 lb 5.8 oz Most Recent Monitor Data Heart Rate from ECG 79 NIBP 119/46 NIBP BP-Mean 90 Respiration from ECG 19 SpO2 100 I&O: 12/26/17 12/27/17 12/28/17 06:59 06:59 06:59 Intake Total 4137 2970 Output Total 7 Balance 4130 2970 Result Diagrams: 12/27/17 04:16 12/27/17 04:16 Phys Exam - Physical Examination Constitutional: NAD HEENT: PERRLA, moist MMs, sclera anicteric Neck: no JVD, supple Respiratory: no wheezing, no rales, no rhonchi Cardiovascular: RRR, no significant murmur, no rub Gastrointestinal: soft, non-tender, no distention, positive bowel sounds peg+ Musculoskeletal: no edema, pulses present Neurological: non-focal, normal sensation Psychiatric: normal affect, A&O x 3 Skin: no rash, normal turgor Dx/Plan (1) Acute kidney failure Status: Acute (2) Demand ischemia Code(s): I24.8 - OTHER FORMS OF ACUTE ISCHEMIC HEART DISEASE Status: Acute (3) Failure to thrive in adult Status: Chronic (4) Hyperkalemia Code(s): E87.5 - HYPERKALEMIA Status: Resolved (5) Hypovolemic shock Code(s): R57.1 - HYPOVOLEMIC SHOCK Status: Resolved (6) Lactic acidosis Code(s): E87.2 - ACIDOSIS Status: Resolved (7) Severe dehydration Code(s): E86.0 - DEHYDRATION Status: Resolved (8) UTI (urinary tract infection) Status: Suspected (9) Anemia of chronic disease Code(s): D63.8 - ANEMIA IN OTHER CHRONIC DISEASES CLASSIFIED ELSEWHERE Status : Chronic (10) Anxiety and depression Code(s): F41.9 - ANXIETY DISORDER, UNSPECIFIED; F32.9 - MAJOR DEPRESSIVE DISORDER, SINGLE EPISODE, UNSPECIFIED Status: Chronic (11) Dyslipidemia Code(s): E78.5 - HYPERLIPIDEMIA, UNSPECIFIED Status: Chronic (12) Dysphagia Code(s): R13.10 - DYSPHAGIA, UNSPECIFIED Status: Chronic (13) GERD (gastroesophageal reflux disease) Code(s): K21.9 - GASTRO-ESOPHAGEAL REFLUX DISEASE WITHOUT ESOPHAGITIS Status: Chronic (14) History of esophageal cancer Code(s): Z85.01 - PERSONAL HISTORY OF MALIGNANT NEOPLASM OF ESOPHAGUS Status: Chronic (15) Hypertension Code(s): I10 - ESSENTIAL (PRIMARY) HYPERTENSION Status: Chronic (16) Hypomagnesemia Code(s): E83.42 - HYPOMAGNESEMIA Status: Acute (17) Hypophosphatemia Code(s): E83.39 - OTHER DISORDERS OF PHOSPHORUS METABOLISM Status: Acute - Plan cont current plan of care * continue gentle IVF * start tube feeding and educate pt about tube feeding * medication reviewed as below * symptomatic treatment. * replace potassium phosphate Review of Systems - Review of Systems Eyes: negative: Pain, Vision Change, Conjunctivae Inflammation, Eyelid Inflammation, Redness, Other ENT: negative: Ear Pain, Ear Discharge, Nose Pain, Nose Discharge, Nose Congestion, Mouth Pain, Mouth Swelling, Throat Pain, Throat Swelling, Other Respiratory: negative: Cough, Dry, Shortness of Breath, Hemoptysis, SOB with Excertion, Pleuritic Pain, Sputum, Wheezing Cardiovascular: negative: chest pain, palpitations, orthopnea, paroxysmal nocturnal dyspnea, edema, light headedness, other Gastrointestinal: negative: Nausea, Vomiting, Abdominal Pain, Diarrhea, Constipation, Melena, Hematochezia, Other Genitourinary: negative: Dysuria, Frequency, Incontinence, Hematuria, Retention , Other Musculoskeletal: negative: Neck Pain, Shoulder Pain, Arm Pain, Back Pain, Hand Pain, Leg Pain, Foot Pain, Other - Medications/Allergies Allergies/Adverse Reactions: Allergies Allergy/AdvReac Type Severity Reaction Status Date / Time No Known Allergies Allergy Verified 12/25/17 03:50 Medications: Current Medications Acetaminophen (Tylenol) 650 mg PO Q4H PRN PRN Reason: Headache/Fever or Pain Hydrocodone Bitart/Acetaminophen ([place] 10/325) 1 tab PO Q4H PRN PRN Reason: Severe Pain (7-10) Hydrocodone Bitart/Acetaminophen ([place] 5/325) 1 tab PO Q4H PRN PRN Reason: Moderate Pain (4-6) Last Admin: 12/26/17 17:14 Dose: 1 tab Al Hydroxide/Mg Hydroxide (Maalox) 15 ml PO Q4H PRN PRN Reason: Heartburn or Indigestion Alprazolam (Xanax) 0.5 mg PO BIDPRN PRN PRN Reason: Agitation Artificial Tears (Tears Naturale) 0 drop EA EYE PRN PRN PRN Reason: Dry Eyes Aspirin (Aspirin) 325 mg PO DAILYPRN PRN PRN Reason: Pain Clopidogrel Bisulfate (Plavix) 75 mg PO DAILY [facility] Last Admin: 12/26/17 09:29 Dose: Not Given Guaifenesin (Robitussin Sf) 200 mg PO Q4H PRN PRN Reason: Cough Heparin Sodium (Porcine) (Heparin) 5,000 units SC TID [facility] Last Admin: 12/26/17 21:19 Dose: 5,000 units Hydralazine HCl (Apresoline) 10 mg SLOW IVP Q4H PRN PRN Reason: Systolic BP > 180 Sodium Chloride (1/2 Normal Saline) 1,000 mls @ 100 mls/hr IV .Q10H [facility] Last Admin: 12/27/17 00:45 Dose: 1,000 mls Potassium Phosphate 21 mmol/ (Sodium Chloride) 507 mls @ 84.5 mls/hr IVPB ONE [facility] Stop: 12/27/17 14:00 Last Admin: 12/27/17 07:57 Dose: 507 mls Loperamide HCl (Imodium) 2 mg PO PRN PRN PRN Reason: Diarrhea/Loose Stools Loratadine (Claritin) 10 mg PO DAILYPRN PRN PRN Reason: Sinus Symptoms Magnesium Hydroxide (Milk Of Magnesium) 30 ml PO DAILYPRN PRN PRN Reason: Constipation Mineral Oil/White Petrolatum (Eucerin Cream) 0 gm TOP BIDPRN PRN PRN Reason: Dry Skin Ondansetron HCl (Zofran) 4 mg IVP Q6H PRN PRN Reason: Nausea/Vomiting Ondansetron HCl (Zofran Odt) 4 mg PO Q6H PRN PRN Reason: Nausea/Vomiting Pantoprazole Sodium (Protonix) 40 mg IVP Q12HR [facility] Last Admin: 12/26/17 21:19 Dose: 40 mg Phenol (Chloraseptic [place] 180 Ml Bot) 0 ml PO PRN PRN PRN Reason: Sore Throat Senna (Senokot) 2 tab PO HSPRN PRN PRN Reason: Constipation Simvastatin (Zocor) 40 mg PO DAILY [facility] Last Admin: 12/26/17 09:31 Dose: 40 mg Sodium Chloride (Flush - Normal Saline) 10 ml IVF Q12HR [facility] Last Admin: 12/26/17 21:20 Dose: 10 ml Sodium Chloride (Flush - Normal Saline) 10 ml IVF PRN PRN PRN Reason: Saline Flush Sodium Chloride ([place] Nasal [place] 0.65%) 0 ml EA NARE QIDPRN PRN PRN Reason: Nasal Congestion Temazepam (Restoril) 15 mg PO HSPRN PRN PRN Reason: Insomnia
[2017-12-27] MEDS: Clopidogrel Bisulfate 75 MG TAB PO SCH (09:27)
[2017-12-27] MEDS: Pantoprazole 40 MG VIAL IVP SCH ×2 (09:28→20:39)
[2017-12-27] MEDS: Simvastatin 40 MG TAB PO SCH (09:28)
[2017-12-27] MEDS: Heparin 5,000 UNITS/ML VIAL SC SCH ×3 (09:28→20:39)
--- NOTE | 2017-12-27 11:41 | PRG ---
DATE OF SERVICE: 12/27/2017 I came by this morning to check on Mr. Contreras and his PEG site. He says he is doing pretty well. T he PEG site is a bit sore, but otherwise not bothering him. He has tolerated tube feeds and also his normal diet. The PEG site looks good. No significant bleeding or oozing. I did loosen the externa l bumper slightly to 4.5 cm which should be a good position for him. RECOMMENDATIONS: GI will sign off at this time, but please call back anytime with questions or mary rns.
[2017-12-28] MEDS: Sodium Chloride 0.45% 1,000 ML IV SCH ×3 (00:45→11:29)
[2017-12-28 07:49] VITALS: BP 132/72; TEMP 97.8
[2017-12-28] MEDS: Simvastatin 40 MG TAB PO SCH (09:39)
[2017-12-28] MEDS: Heparin 5,000 UNITS/ML VIAL SC SCH ×2 (09:39→16:49)
[2017-12-28] MEDS: Pantoprazole 40 MG VIAL IVP SCH (09:39)
[2017-12-28] MEDS: Clopidogrel Bisulfate 75 MG TAB PO SCH (09:39)
--- NOTE | 2017-12-28 09:56 | DIS ---
DATE OF ADMISSION: 12/24/2017 DATE OF DISCHARGE: 12/28/2017 PRIMARY CARE PHYSICIAN: Jones Ramirez. DISCHARGE DISPOSITION: Home with home health. PRIMARY DISCHARGE DIAGNOSES: 1. Acute kidney failure, prerenal, improved. 2. Demand ischemia. 3. Abnormal electrolytes with hypomagnesemia, hypophosphatemia, corrected. 4. Severe dehydration, corrected. 5. Lactic acidosis, corrected. 6. Hypovolemic shock, corrected. SECONDARY DISCHARGE DIAGNOSES: Hypertension, history of esophageal cancer, chronic dysphagia, gastro esophageal reflux disease, failure to thrive in adult. PRIMARY PROCEDURE/OPERATION: Central line placement, PEG tube placement. RADIOLOGICAL INVESTIGATION: Chest x-ray was unremarkable. SIGNIFICANT LABORATORY DATA: WBC 7.9, hemoglobin 10.9, platelet 153. Sodium 141, potassium 3.9, BUN 48, creatinine 1.30, calcium 8.7, phosphorus 2.5, magnesium 1.6, troponin 0.066. Urinalysis unremar kable. Blood culture negative. Urine culture negative. Stool for guaiac negative. DISCHARGE MEDICATIONS: Berkley 10 one tablet q.4 hourly p.r.n., Xanax 0.5 mg p.o. b.i.d. p.r.n., aspir in 325 mg p.o. daily p.r.n., Plavix 75 mg p.o. daily, metoprolol 100 mg p.o. b.i.d., Protonix 20 mg p .o. daily, Zocor 40 mg p.o. daily. CONTRAINDICATIONS: None. CODE STATUS: FULL CODE. INPATIENT CONSULTANTS: Dr. Dsouza was following because patient was admitted in CCU. Dr. Arun ward oncologist was consulted for esophageal cancer. Dr. Eric was consulted for PEG tube placement. TEST RESULTS PENDING ON DISCHARGE: None. ALLERGIES: No known drug allergy. DISCHARGE PLAN: Post hospital, patient will follow up with primary care physician and oncologist as instructed. HOSPITAL COURSE: A 77-year-old male who was admitted by Dr. Conde on 12/25/2017. On admission, zehra johnston was severely dehydrated. He had acute kidney failure. His creatinine on admission was 4.45. He also had abnormal electrolytes. Initially, hyperkalemic and metabolic acidosis because of renal failure that was improved with IV fluid. Subsequently, he had hypophosphatemia, hypomagnesemia and h ypokalemia which were also corrected while in hospital. His renal function improved to 1.30 with IV fluid and hydration. Initially, he was hypotensive and that is why he required Levophed support to k eep his blood pressure up. Subsequently, his blood pressure improved without any vasopressor support and that is why we moved him out to medical floor. His stool for guaiac was negative. His blood cu lture and urine culture remain negative. His blood pressure is running little bit lower side and cher t is why we discontinued lisinopril from his regimen, but we continued metoprolol upon discharge. Main problem underlying renal failure is of poor p.o. intake and failure to thrive in adult secondary to esophageal cancer and that is why we consulted quality control representative to do PEG tube. PEG tube is do ne and subsequently started tube feeding. The patient education about PEG tube as well as PEG tube f eeding was done while in hospital. We prescribed Jevity 1.2 four cans daily along with his diet as t olerated. Oncology also evaluated this patient while in hospital. Pulmonary evaluated this patient while in hospital because he was in ICU. Overall, patient is stable for discharge. Patient is seen and examined at bedside today. All review of system reviewed with him and negative. PHYSICAL EXAMINATION: VITAL SIGNS: Currently, temperature 97.8, pulse 90, respiratory rate 16, saturation 100% on room air , blood pressure 132/72 and weight 163 pounds. GENERAL: The patient is currently alert, awake, no obvious acute distress. HEAD: Normocephalic, atraumatic. EYES: Pupils round, reactive to light. Extraocular muscle intact. ENT: Oropharynx within normal limits. Moist mucous membranes. No oral lesion, no pharyngeal erythe ma, no exudate. NECK: Supple, no JVD, no thyromegaly, no carotid bruit. LUNGS: Clear to auscultation without any rhonchi or rales. CARDIAC: S1 and S2 regular without any murmur. ABDOMEN: Soft and benign. PEG tube in place. NEUROLOGIC: Nonfocal examination. Overall, patient is medically stable for discharge with home health.
--- NOTE | 2017-12-28 10:42 | PDOC.PN ---
- Subjective Encounter Start Date: 12/28/17 Encounter Start Time: 10:15 Patient seen and examined. No new complaints. No overnight events - Objective Resuscitation Status: Resuscitation Status FULL:Full Resuscitation MAR Reviewed: Yes Vital Signs & Weight: Vital Signs (12 hours) Temp Pulse Resp BP Pulse Ox 12/28/17 07:48 97.8 F 90 16 132/72 100 Weight Admit Weight 163 lb Weight 163 lb 5.8 oz Most Recent Monitor Data Heart Rate from ECG 79 NIBP 119/46 NIBP BP-Mean 90 Respiration from ECG 19 SpO2 100 I&O: 12/27/17 12/28/17 12/29/17 06:59 06:59 06:59 Intake Total 2970 3370 500 Balance 2970 3370 500 Result Diagrams: 12/27/17 04:16 12/27/17 04:16 Phys Exam - Physical Examination Constitutional: NAD HEENT: PERRLA, moist MMs, sclera anicteric Neck: no JVD, supple Respiratory: no wheezing, no rales, no rhonchi Cardiovascular: RRR, no significant murmur, no rub Gastrointestinal: soft, non-tender, no distention, positive bowel sounds Musculoskeletal: no edema, pulses present Neurological: non-focal, normal sensation, moves all 4 limbs Psychiatric: normal affect, A&O x 3 Skin: no rash, normal turgor Dx/Plan (1) Acute kidney failure Status: Acute (2) Demand ischemia Code(s): I24.8 - OTHER FORMS OF ACUTE ISCHEMIC HEART DISEASE Status: Acute (3) Failure to thrive in adult Status: Chronic (4) Hyperkalemia Code(s): E87.5 - HYPERKALEMIA Status: Resolved (5) Hypovolemic shock Code(s): R57.1 - HYPOVOLEMIC SHOCK Status: Resolved (6) Lactic acidosis Code(s): E87.2 - ACIDOSIS Status: Resolved (7) Severe dehydration Code(s): E86.0 - DEHYDRATION Status: Resolved (8) UTI (urinary tract infection) Status: Suspected (9) Anemia of chronic disease Code(s): D63.8 - ANEMIA IN OTHER CHRONIC DISEASES CLASSIFIED ELSEWHERE Status : Chronic (10) Anxiety and depression Code(s): F41.9 - ANXIETY DISORDER, UNSPECIFIED; F32.9 - MAJOR DEPRESSIVE DISORDER, SINGLE EPISODE, UNSPECIFIED Status: Chronic (11) Dyslipidemia Code(s): E78.5 - HYPERLIPIDEMIA, UNSPECIFIED Status: Chronic (12) Dysphagia Code(s): R13.10 - DYSPHAGIA, UNSPECIFIED Status: Chronic (13) GERD (gastroesophageal reflux disease) Code(s): K21.9 - GASTRO-ESOPHAGEAL REFLUX DISEASE WITHOUT ESOPHAGITIS Status: Chronic (14) History of esophageal cancer Code(s): Z85.01 - PERSONAL HISTORY OF MALIGNANT NEOPLASM OF ESOPHAGUS Status: Chronic (15) Hypertension Code(s): I10 - ESSENTIAL (PRIMARY) HYPERTENSION Status: Chronic - Plan cont current plan of care * medication reviewed as below * symptomatic treatment * see my discharge summery. Review of Systems - Review of Systems Eyes: negative: Pain, Vision Change, Conjunctivae Inflammation, Eyelid Inflammation, Redness, Other ENT: negative: Ear Pain, Ear Discharge, Nose Pain, Nose Discharge, Nose Congestion, Mouth Pain, Mouth Swelling, Throat Pain, Throat Swelling, Other Respiratory: negative: Cough, Dry, Shortness of Breath, Hemoptysis, SOB with Excertion, Pleuritic Pain, Sputum, Wheezing Cardiovascular: negative: chest pain, palpitations, orthopnea, paroxysmal nocturnal dyspnea, edema, light headedness, other Gastrointestinal: negative: Nausea, Vomiting, Abdominal Pain, Diarrhea, Constipation, Melena, Hematochezia, Other Genitourinary: negative: Dysuria, Frequency, Incontinence, Hematuria, Retention , Other Musculoskeletal: negative: Neck Pain, Shoulder Pain, Arm Pain, Back Pain, Hand Pain, Leg Pain, Foot Pain, Other Skin: negative: Rash, Lesions, Gino, Bruising, Other - Medications/Allergies Allergies/Adverse Reactions: Allergies Allergy/AdvReac Type Severity Reaction Status Date / Time No Known Allergies Allergy Verified 12/25/17 03:50 Medications: Current Medications Acetaminophen (Tylenol) 650 mg PO Q4H PRN PRN Reason: Headache/Fever or Pain Hydrocodone Bitart/Acetaminophen ([place] 10/325) 1 tab PO Q4H PRN PRN Reason: Severe Pain (7-10) Last Admin: 12/27/17 18:19 Dose: 1 tab Hydrocodone Bitart/Acetaminophen ([place] 5/325) 1 tab PO Q4H PRN PRN Reason: Moderate Pain (4-6) Last Admin: 12/26/17 17:14 Dose: 1 tab Al Hydroxide/Mg Hydroxide (Maalox) 15 ml PO Q4H PRN PRN Reason: Heartburn or Indigestion Alprazolam (Xanax) 0.5 mg PO BIDPRN PRN PRN Reason: Agitation Artificial Tears (Tears Naturale) 0 drop EA EYE PRN PRN PRN Reason: Dry Eyes Aspirin (Aspirin) 325 mg PO DAILYPRN PRN PRN Reason: Pain Clopidogrel Bisulfate (Plavix) 75 mg PO DAILY [facility] Last Admin: 12/28/17 09:39 Dose: 75 mg Guaifenesin (Robitussin Sf) 200 mg PO Q4H PRN PRN Reason: Cough Heparin Sodium (Porcine) (Heparin) 5,000 units SC TID [facility] Last Admin: 12/28/17 09:39 Dose: 5,000 units Hydralazine HCl (Apresoline) 10 mg SLOW IVP Q4H PRN PRN Reason: Systolic BP > 180 Sodium Chloride (1/2 Normal Saline) 1,000 mls @ 100 mls/hr IV .Q10H [facility] Last Admin: 12/28/17 09:38 Dose: 1,000 mls Loperamide HCl (Imodium) 2 mg PO PRN PRN PRN Reason: Diarrhea/Loose Stools Loratadine (Claritin) 10 mg PO DAILYPRN PRN PRN Reason: Sinus Symptoms Magnesium Hydroxide (Milk Of Magnesium) 30 ml PO DAILYPRN PRN PRN Reason: Constipation Mineral Oil/White Petrolatum (Eucerin Cream) 0 gm TOP BIDPRN PRN PRN Reason: Dry Skin Ondansetron HCl (Zofran) 4 mg IVP Q6H PRN PRN Reason: Nausea/Vomiting Ondansetron HCl (Zofran Odt) 4 mg PO Q6H PRN PRN Reason: Nausea/Vomiting Pantoprazole Sodium (Protonix) 40 mg IVP Q12HR [facility] Last Admin: 12/28/17 09:39 Dose: 40 mg Phenol (Chloraseptic [place] 180 Ml Bot) 0 ml PO PRN PRN PRN Reason: Sore Throat Senna (Senokot) 2 tab PO HSPRN PRN PRN Reason: Constipation Simvastatin (Zocor) 40 mg PO DAILY [facility] Last Admin: 12/28/17 09:39 Dose: 40 mg Sodium Chloride (Flush - Normal Saline) 10 ml IVF Q12HR [facility] Last Admin: 12/28/17 09:39 Dose: Not Given Sodium Chloride (Flush - Normal Saline) 10 ml IVF PRN PRN PRN Reason: Saline Flush Last Admin: 12/28/17 09:40 Dose: 10 ml Sodium Chloride ([place] Nasal [place] 0.65%) 0 ml EA NARE QIDPRN PRN PRN Reason: Nasal Congestion Temazepam (Restoril) 15 mg PO HSPRN PRN PRN Reason: Insomnia
--- NOTE | 2018-01-04 17:56 | EKG ---
Test Reason : Blood Pressure : / mmHG Vent. Rate : 130 BPM Atrial Rate : 130 BPM P-R Int : 142 ms QRS Dur : 116 ms QT Int : 310 ms P-R-T Axes : 082 060 037 degrees QTc Int : 456 ms Sinus tachycardia Right bundle branch block Abnormal ECG Confirmed by EVERETT CELESTIN DO ([id number]), editor publications DANIEL ADAME ([id number]) on 01/04/2018 5:55:55 PM Referred By: Confirmed By:EVERETT CELESTIN DO
== END 2017-12-28 15:54 | disposition home health service (06) | DRG 374 ==
LOC: ERS 19:39 → CCU 23:02 → T4-B 12-26 07:51
PROVIDERS: ADMIT Hospitalist; ATTEND Hospitalist
PROC: 0DH63UZ Insertion of Feeding Device into Stomach, Percutaneous Approach (ICD-10-PCS; principal; 2017-12-26)
PROC: 0DD58ZX Extraction of Esophagus, Via Natural or Artificial Opening Endoscopic, Diagnostic (ICD-10-PCS; 2017-12-26)
DX: C15.3 Malignant neoplasm of upper third of esophagus (principal); R57.1 Hypovolemic shock; E43 Unspecified severe protein-calorie malnutrition; N17.9 Acute kidney failure, unspecified; I24.8 Other forms of acute ischemic heart disease; E87.2 Acidosis; N39.0 Urinary tract infection, site not specified; K22.10 Ulcer of esophagus without bleeding; Z51.5 Encounter for palliative care; Z86.73 Personal history of transient ischemic attack (TIA), and cerebral infarction without residual deficits; I10 Essential (primary) hypertension; F41.8 Other specified anxiety disorders; Z72.0 Tobacco use; K59.00 Constipation, unspecified; E86.0 Dehydration; R62.7 Adult failure to thrive; K21.9 Gastro-esophageal reflux disease without esophagitis; E87.5 Hyperkalemia; D63.8 Anemia in other chronic diseases classified elsewhere
CPT/HCPCS: 36415; 36556; 51702; 71045; 80048; 80053; 81003; 81015; 82274; 82550; 82553; 83605; 83735; 83880; 84100; 84484; 85025; 87040; 87086; 88305; 88312; 88313; 93005; 96361; 96365; 96366; 96375; A4216; C9113; J1644; J2001; J2543; J2704; J2930; J3475; J7050

== ENCOUNTER 2018-02-28 11:09 | Inpatient (IN) | payer MEDICARE ==
[2018-02-28 11:51] LABS: INR-International Normal Ratio 1.3; PTT 26.2 SEC (22.9-36.1); Prothrombin Time 16.2 SEC (12.0-14.7)
[2018-02-28] MEDS ORDERED: Norepinephrine 8 MG/0.9% NS 250 ML ONE (11:54)
[2018-02-28 11:59] LABS: Bilirubin Small (Negative); Blood, Urine Small (Negative); Clarity TURBID (Clear); Glucose, Urine (Dipstick) Negative (Negative); Leukocyte Large (Negative); Nitrite Negative (Negative); Protein, Urine (Dipstick) 100 mg/dL (Neg-Trace); Specific Gravity, Urine 1.015 (1.002-1.036); pH, Urine 8.5 (5.0-9.0)
[2018-02-28 12:01] LABS: Bacteria/HPF 4+ HPF (None Seen); Yeast-AUWi Flag 24.5 (0-25.0)
[2018-02-28 12:03] LABS: Pathc Cast-AUWi Flag 4.67 (0-2.49)
[2018-02-28 12:14] LABS: Hyaline Casts/LPF NONE SEEN LPF (0-3 Hyaline); RBC/HPF 0-3 HPF (0-3)
[2018-02-28 12:15] LABS: Manual Microscopic Reviewed? No Path Casts Seen
[2018-02-28] MEDS: Norepinephrine 8 MG/0.9% NS 250 ML IVPB SCH (12:25)
[2018-02-28 12:27] LABS: ALT (SGPT) 112 U/L (8-55); AST (SGOT) 115 U/L (5-34); Albumin 2.4 g/dL (3.4-4.8); Alkaline Phosphatase 101 U/L (40-150); Anion Gap 14 mmol/L (10-20); BUN (Urea Nitrogen) 45 mg/dL (8.4-25.7); Bilirubin, Total 0.8 mg/dL (0.2-1.2); CK (CPK) 125 U/L (30-200); Calc. Creatinine Clearance 0 mL/min (70-130); Carbon Dioxide 22 mmol/L (23-31); Chloride 108 mmol/L (98-107); Estimated GFR-MDRD 59; Globulin 3.4 g/dL (2.4-3.5); Glucose 141 mg/dL (83-110); Lipase 10 U/L (8-78); Potassium 3.6 mmol/L (3.5-5.1); Protein, Total 5.8 g/dL (5.8-8.1); Sodium 140 mmol/L (136-145)
[2018-02-28 12:31] LABS: CKMB 0.3 ng/mL (0-6.6); Troponin I 0.033 ng/mL (< 0.028)
[2018-02-28] MEDS ORDERED: ISOVUE-370 76%-LOCM 1 ML ONE (12:33)
[2018-02-28 12:51] LABS: Band 14 % (5-11); Hemoglobin 10.2 g/dL (14.0-18.0); MDiff Complete? YES; Mean Corpuscular HGB CONC 31.2 g/dL (32.0-36.0); Mean Corpuscular Hemoglobin 31.4 pg (27.0-31.0); Mean Platelet Volume 5.2 fL (7.4-10.4); Neutrophil 86 % (42-75); PLT Morphology Comment Appears Adequate; Platelet Count 201 thou/uL (130-400); RBC Distribution Width 15.5 % (11.5-14.5); Red Blood Cell (RBC) Count 3.24 mill/uL (4.70-6.10); White Blood Cell (WBC) Count 15.8 thou/uL (4.8-10.8)
--- NOTE | 2018-02-28 12:55 | RAD ---
FRONTAL VIEW CHEST: INDICATIONS: Unresponsive patient. COMPARISON: 12/24/2017 FINDINGS: There is a right internal jugular venous catheter with the tip overlying the cavoatrial junction. Th e lungs are clear. No effusion or pneumothorax is visualized. The cardiomediastinal silhouette is a ccentuated by the portable technique. IMPRESSION: No focal consolidation. POS: [facility]
--- NOTE | 2018-02-28 12:58 | CT ---
CT BRAIN WITHOUT CONTRAST: INDICATIONS: History of altered mental status. A 77-year-old male with hypertension and esophageal cancer, found unresponsive by the patient's . COMPARISON: None. FINDINGS: There is moderate to severe chronic small vessel white matter ischemic change. There is a remote inf arct involving the right frontal lobe. The septum pellucidum and third ventricle are midline. No de finite acute infarct, hemorrhage, or hydrocephalus is present. The skull and extracranial soft tissu es appear within normal limits. IMPRESSION: 1. No acute intracranial abnormality. 2. Chronic ischemic change, as above. POS: [facility]
[2018-02-28] MEDS ORDERED: cefTRIAXone\\ROCEPHIN 1 GM VIAL ONE (15:08)
--- NOTE | 2018-02-28 16:15 | HP ---
PRIMARY CARE PHYSICIAN: [facility]. REASON FOR ADMISSION: Septic shock. HISTORY OF PRESENT ILLNESS: A 77-year-old male who has history of localized esophageal can cer who received chemotherapy and radiation. He was given carboplatin and Taxol, which he completed in 11/21/2017 and concurrently he had radiation therapy. After that treatment, patient had a gradual decline in his overall condition with weakness, poor appetite, and dysphagia. Patient was admitted in our hospital on 12/25/2017. At that time, patient was hypotensive and found with acute kidney lambert lure which was attributed to be due to dehydration and poor p.o. intake. At that time, patient also had shock, required Levophed drip. During that admission, patient had a PEG tube placed and patient was discharged home on 12/27/2017. His renal function completely recovered. On discharge, the patie nt had hospice. Currently, patient's son is present at bedside who reports that he is medical power of family law attorney for p atient and he signed previously out of hospital DNR paperwork with the request of hospice upon discha rge. The patient lives at home by himself and he had hospice support. Patient's son was not happy w ith hospice because they were keeping him sleepy with the fentanyl patch. The patient's condition st arted again declining and he was not responsive since yesterday. He was not able to talk coherently and today he was completely unresponsive and that is why he revoked hospice and [facility] Paramedics brought him here and he is out of hospital DNR paperwork with the paramedics in the [facility], so paperwork was not available when we saw this patient in the emergency room. As per patient's son, he does not want to go back to hospice. Patient's son reports that in case of cardiac arrest, he does not want any CPR to be done, but he reports that in case if his breathing sto ps, then he is okay with a temporary intubation and ventilatory support. He is giving that verbal co nsent. Paramedics gave him Narcan without any significant improvement. The patient's son was thinking that everything was related with narcotic, but Narcan did not change. When he came to emergency room, he was hypothermic required Aristides Hugger. He was hypotensive, required Levophed drip. He was given IV f luid as well and started on broad spectrum antibiotic therapy. Patient is completely unresponsive and lethargic, unable to provide any history. REVIEW OF SYSTEMS: All review of systems tried to review with the patient, but unable to review at t his point because of encephalopathy. PAST MEDICAL HISTORY: Esophageal cancer treated with concurrent radiation and chemotherapy, history of TIA, peripheral arterial disease, hypertension, dyslipidemia, recent admission for acute kidney fa ilure due to prerenal etiology. PAST PSYCHIATRIC HISTORY: Anxiety and depression. PAST SURGICAL HISTORY: PEG tube placement. SOCIAL HISTORY: Patient currently lives at home. His son lives 200 yards away from his house. The patient lives in his own property. He was in hospice care. He has a remote history of heavy alcohol abuse, but he stopped drinking since diagnosis of esophageal cancer. He is also a former smoker and he quit smoking in December. He does not have any other illicit drug abuse history. He is not abl e to do his daily activities of routine life by himself. FAMILY HISTORY: No family history of coronary artery disease, stroke or cancer, diabetes to his [facility]. ALLERGIES: No known drug allergy. CURRENT HOME MEDICATIONS: The patient does not have any medication with him at this point, but when he was discharged at that time, the patient was on [place] 1 tablet q.4 hourly, Xanax 0.5 mg b.i.d., as pirin 325 mg p.o. daily p.r.n., Plavix 75 mg daily, Lopressor 100 mg b.i.d., Protonix 20 mg daily, Zo cor 40 mg p.o. daily. EMERGENCY ROOM COURSE: Central line was placed. Patient was started on Levophed drip, Rocephin is g iven 2 liters and 1 liter IV fluid is given. The patient was also given IV fluid by paramedics. PHYSICAL EXAMINATION: VITAL SIGNS: Currently, lowest blood pressure in the emergency room is 68/42, but after Levophed cur rently blood pressure 119/58, pulse 73, respiratory rate 25, temperature initially hypothermic, but c urrently 99.3, saturation 100% on nonrebreather, weight 72 kilograms. GENERAL: Patient is currently unresponsive, lethargic, appears chronically ill. HEAD: Normocephalic, atraumatic. EYES: Pupils round, reactive to light. ENT: Dry mucous membranes. No pharyngeal erythema, no exudate. NECK: Supple, no JVD, no thyromegaly, no carotid bruit. LUNGS: Few end expiratory wheeze, but no rales. No accessory muscles of respiration in use. CARDIAC: S1, S2 appears regular without any significant murmur. ABDOMEN: Grossly soft but no peritoneal signs, no rigidity. PEG tube in place. GENITOURINARY: Diaper in place, but the genitalia within normal limits. BACK: Unremarkable. EXTREMITIES: Upper extremity passive movements of all joints are normal. Lower extremity passive mo vements of all joints are normal. NEUROLOGIC: Unable to assess at this point, patient withdraws to pain. His GCS score is 9. Detaile d neurological examination is not possible. SKIN: No skin rash. PSYCHIATRIC: Unable to assess at this point. IMAGING DATA AND SIGNIFICANT LABORATORY DATA: EKG showing normal sinus rhythm, complete right bundle branch block pattern. CT brain based on my review, no acute cardiopulmonary process. Chest x-ray b ased on my review, no acute cardiopulmonary process. CBC: WBC 15.8, hemoglobin 10.2, MCV 100, plate let 202 with bandemia. INR 1.3. BMP: Sodium 140, potassium 3.6, chloride 108, carbon dioxide 22, B UN 45, creatinine 1.20, glucose 141, calcium 9.0. LFT: AST 115, ALT 112, alkaline phosphatase 101. CK 125, albumin 2.4, CK-MB 0.3, troponin I 0.033, BNP 86.3. Lactic acid 1.4, lipase 10. Urinalysis suggestive of urinary tract infection. ASSESSMENT AND PLAN/IMPRESSION: 1. Acute encephalopathy due to sepsis. Patient does not have any focal neurological deficit. His C T brain is negative for any acute intracranial process. Currently explained by underlying sepsis. 2. Septic shock, likely due to urinary tract infection. The patient's chest x-ray is not showing an y pneumonia. He has abnormal urinalysis and that is the most likely source of infection. Patient wa s hypotensive, hypothermic and he has associated organ perfusion defect with encephalopathy and abnor mal LFT and elevated troponins. The patient will be admitted in ICU. Central line has been placed. IV fluid will be given and Levophed drip will be given. We will closely monitor in CCU and titrate medication. We will start broad spectrum antibiotic therapy with meropenem, vancomycin. 3. Demand ischemia of myocardium. We will do serial cardiac enzymes x3, likely due to septic shock. 4. Transaminitis, likely due to septic shock. We will repeat LFT tomorrow. 5. Macrocytic anemia. Patient likely due to nutritional reason. Patient will be given folic acid, vitamin B12 therapy upon discharge. 6. Urinary tract infection. We are starting with meropenem and vancomycin and we will follow up on broad culture result and change antibiotic therapy accordingly. 7. Goal of care. I discussed with the patient's son who is medical power of family law attorney who is present at bedside in the emergency room and I had discussion with him about he was in hospice care and he h as underlying cancer as well as he has poor quality of life, but he decided that now he does not want to go back to hospice care, but he is still okay not to do CPR to break his ribs, but in case respir atory arrest happens, then he wanted to do intubation and short term intubation if he recovers or not . He is claiming himself as a decision maker. We will call palliative care while in hospital. The patient's son also expressed his wish to change patient's DNR paperwork and he request paperwork to b e done during this admission. 8. Hypertension, but currently low blood pressure, so we will hold on antihypertensive medication. 9. Coronary artery disease, peripheral arterial disease. We will continue aspirin 81 mg daily, curr ently blood pressure is low. Patient cannot have any blood pressure medication. 10. Dyslipidemia. Because of hypoperfusion, we will hold on statin therapy. 11. Deep venous thrombosis prophylaxis, Lovenox 40 mg subcutaneously daily. 12. Gastrointestinal prophylaxis, Pepcid 20 mg IV b.i.d. 13. Code status. At this point as mentioned above, patient's son reports that he does not want to b e CPR, but intubation is okay in case if necessary. 14. Because of hypotension, we are going to do CT angio to rule out associated pulmonary embolism an d as patient is being admitted in CCU, we will also consult Pulmonary and Critical Care to assist us with the management. Disposition plan based on clinical course. We are expecting patient's stay in hospital more than 2 m idnights. Plan of care discussed with the patient and family member. Total time spent providing critical care to 35 minutes in the Emergency Room.
[2018-02-28] MEDS: Sodium Chloride 0.9% 1,000 ML IV SCH (18:00)
[2018-02-28] MEDS ORDERED: Ondansetron PF 4 MG/2 ML Vial IVP PRN (19:11)
[2018-02-28] MEDS ORDERED: Ondansetron ODT 4 MG TAB PER TUBE PRN (19:11)
[2018-02-28] MEDS ORDERED: Loratadine 10 MG TAB PER TUBE PRN (19:11)
[2018-02-28] MEDS ORDERED: Eucerin (Mineral Oil/Petrolatum,White) 30 gm Jar TOP PRN (19:11)
[2018-02-28] MEDS ORDERED: Multivit, Adult Inj 10 ML VIAL IV SCH (19:11)
[2018-02-28] MEDS ORDERED: Diabetic Tussin 200 MG/10 ML UDCUP PER TUBE PRN (19:11)
[2018-02-28] MEDS ORDERED: Sodium Chloride 0.65% Nasal 44 ML BOT EA NARE PRN (19:11)
[2018-02-28] MEDS ORDERED: Loperamide HCl 2 MG CAP PER TUBE PRN (19:11)
[2018-02-28] MEDS ORDERED: Acetaminophen 650 MG/20.3 ML UDCUP PER TUBE PRN (19:11)
[2018-02-28] MEDS ORDERED: Artificial Tears 18 DROP/0.9 ML EA EYE PRN (19:11)
[2018-02-28] MEDS ORDERED: Senokot S 8.6-50 MG TAB PER TUBE PRN (19:11)
[2018-02-28] MEDS ORDERED: Bisacodyl 10 MG SUPP PR PRN (19:11)
[2018-02-28 19:27] LABS: Base Excess (BEa) -3.4 mEq/L (-2.0 to +3.0); CO2 Tension 30.9 mmHg (35.0-45.0); Calcium, Ionized 1.21 mmol/L (1.12-1.30); Carboxyhemoglobin (COHb) 1.1 gm% (0.0-3.0); Hemoglobin (Hb) 12.2 g/dL (14.0-18.0); Potassium - ABG Lab 3.55 mmol/L (3.70-5.30); pH, Arterial 7.43 (7.35-7.45)
[2018-02-28 19:36] LABS: O2 Tension (PaO2) 52.3 mmHg (> 70.0)
[2018-02-28 19:37] LABS: ALV-art Gradient 622.075 (0-20); Puncture Site LRA
--- NOTE | 2018-02-28 19:56 | CT ---
CT PULMONARY ANGIOGRAM WITH IV CONTRAST AND 3D POSTPROCESSIN02/28/18 HISTORY: Hypotension. Tachypnea. Esophageal cancer. FINDINGS: There is good contrast opacification of the pulmonary arterial vasculature without filling defects to suggest pulmonary embolism. The thoracic aorta is well opacified without aneurysmal dissection. No p leural or pericardial effusions are seen. There are bibasilar infiltrates, right greater than left. N o pneumothoraces are seen. There are degenerative changes in the spine. Upper abdominal tomograms dem onstrate a PEG tube. There is thickening of the wall of the esophagus. There are degenerative changes in the spine. IMPRESSION: No CT evidence of pulmonary embolism. POS: [facility]
[2018-02-28] MEDS ORDERED: Multivitamins, Adult 10 ML in Sodium Chloride 0.9% 500 ML IV ONE (20:00)
[2018-02-28 20:25] VITALS: BMI 22.6
[2018-02-28] MEDS: Famotidine/PF 20 mg/2ml Vial SLOW IVP SCH (20:31)
[2018-02-28] MEDS ORDERED: Vancomycin HCl 1 GM in Premix Bag 1 BAG IVPB SCH (21:15)
[2018-02-28 21:55] LABS: Actual Bicarbonate (HCO3a) 21.7 mEq/L (22-28); Base Excess (BEa) -4.6 mEq/L (-2.0 to +3.0); CO2 Tension 44.5 mmHg (35.0-45.0); Calcium, Ionized 1.23 mmol/L (1.12-1.30); Carboxyhemoglobin (COHb) 0.7 gm% (0.0-3.0); Hemoglobin (Hb) 12.4 g/dL (14.0-18.0); O2 Tension (PaO2) 230.1 mmHg (> 70.0); pH, Arterial 7.31 (7.35-7.45)
[2018-02-28 21:57] LABS: ALV-art Gradient 427.275 (0-20); Puncture Site RBA
[2018-02-28] MEDS: MEROPENEM 1 GM/50 ML 1 GM in Premix Bag 1 BAG IVPB SCH (22:44)
[2018-02-28 23:01] LABS: Troponin I 0.016 ng/mL (< 0.028)
[2018-02-28 23:04] LABS: CKMB 14.2 ng/mL (0-6.6)
[2018-03-01 02:27] LABS: Troponin I 0.017 ng/mL (< 0.028)
[2018-03-01] MEDS: Norepinephrine 8 MG/0.9% NS 250 ML IVPB SCH (03:40)
[2018-03-01] MEDS: Sodium Chloride 0.9% 1,000 ML IV SCH ×3 (03:40→21:55)
[2018-03-01 03:58] LABS: Lactic Acid 1.1 mmol/L (0.5-2.2)
[2018-03-01 04:02] LABS: ALT (SGPT) 118 U/L (8-55); AST (SGOT) 106 U/L (5-34); Albumin 2.6 g/dL (3.4-4.8); Alkaline Phosphatase 90 U/L (40-150); Anion Gap 13 mmol/L (10-20); BUN (Urea Nitrogen) 39 mg/dL (8.4-25.7); Bilirubin, Total 0.5 mg/dL (0.2-1.2); Calc. Creatinine Clearance 73 mL/min (70-130); Calcium 9.3 mg/dL (7.8-10.44); Carbon Dioxide 23 mmol/L (23-31); Chloride 111 mmol/L (98-107); Estimated GFR-MDRD 89; Globulin 3.5 g/dL (2.4-3.5); Glucose 169 mg/dL (83-110); Potassium 3.5 mmol/L (3.5-5.1); Protein, Total 6.1 g/dL (5.8-8.1); Sodium 143 mmol/L (136-145)
[2018-03-01 04:21] LABS: Band 22 % (5-11); Hemoglobin 11.4 g/dL (14.0-18.0); Hypochromia SLIGHT = 6-15 cells (100X) (0-5/hpf); Lymphocytes 2 % (21-51); MDiff Complete? YES; Macrocytosis SLIGHT = 6-15 cells (100X) (0-5/hpf); Mean Corpuscular HGB CONC 30.9 g/dL (32.0-36.0); Mean Corpuscular Hemoglobin 30.9 pg (27.0-31.0); Mean Platelet Volume 8.3 fL (7.4-10.4); Neutrophil 76 % (42-75); PLT Morphology Comment Appears Adequate; Platelet Count 202 thou/uL (130-400); RBC Distribution Width 15.4 % (11.5-14.5); Red Blood Cell (RBC) Count 3.68 mill/uL (4.70-6.10); White Blood Cell (WBC) Count 10.4 thou/uL (4.8-10.8)
[2018-03-01] MEDS: MEROPENEM 1 GM/50 ML 1 GM in Premix Bag 1 BAG IVPB SCH ×3 (05:19→21:58)
--- NOTE | 2018-03-01 09:17 | PDOC.PN ---
- Subjective Encounter Start Date: 03/01/18 Encounter Start Time: 09:14 Mr. Contreras was seen today in follow-up of UTI with sepsis. He is more alert this morning. He says he feels very weak, and is thirsty. - Objective Resuscitation Status: Resuscitation Status CHEM:Chem Code Only MAR Reviewed: Yes Vital Signs & Weight: Vital Signs (12 hours) Temp Pulse Resp Pulse Ox 03/01/18 08:00 98.3 F 03/01/18 06:47 76 33 H 96 03/01/18 03:02 81 28 H 100 03/01/18 01:00 98.5 F 02/28/18 22:27 81 28 H 95 Weight Weight 153 lb 0.013 oz Most Recent Monitor Data Heart Rate from ECG 71 NIBP 127/63 NIBP BP-Mean 84 Respiration from ECG 31 SpO2 95 I&O: 02/28/18 03/01/18 03/02/18 06:59 06:59 06:59 Intake Total 2103 Output Total 625 175 Balance 1478 -175 Result Diagrams: 03/01/18 03:23 03/01/18 03:23 Additional Labs: Accuchecks 02/28/18 11:12 POC Glucose 145 H Phys Exam - Physical Examination HEENT: PERRLA + rhonchi bilaterally, no wheeing, no rales Cardiovascular: RRR, no significant murmur, no rub 2/6 systolic murmur Gastrointestinal: soft, non-tender, no distention, positive bowel sounds Musculoskeletal: no edema, pulses present Neurological: non-focal, moves all 4 limbs Psychiatric: normal affect, A&O x 3 Dx/Plan (1) UTI (urinary tract infection) Status: Acute (2) Sepsis Code(s): A41.9 - SEPSIS, UNSPECIFIED ORGANISM Status: Acute (3) History of esophageal cancer Code(s): Z85.01 - PERSONAL HISTORY OF MALIGNANT NEOPLASM OF ESOPHAGUS Status: Chronic (4) Hypertension Code(s): I10 - ESSENTIAL (PRIMARY) HYPERTENSION Status: Chronic - Plan * UTI with sepsis- continue Meropenem and Vancomycin. He is still requiring pressors. Awaiting Culture results * Sepsis- he is down to 5mcg on the levophed drip- will contine to shena this as tolerated. * Esophageal Cancer- per family report this is in remission * HTN- blood pressure is low- hold antihypertensives * CODE STATUS- discussed with the patient and the patient's son- he would like to be DNR, no intubation and no CPR. * His son is alos agreeable to considering Hospice once again
[2018-03-01] MEDS: Enoxaparin Sodium 40 MG/0.4 ML SYRINGE SC SCH (09:20)
[2018-03-01] MEDS: Folic Acid 1 MG TAB PER TUBE SCH (09:21)
[2018-03-01] MEDS: Lactinex Tablet PER TUBE SCH (09:21)
[2018-03-01] MEDS: Famotidine/PF 20 mg/2ml Vial SLOW IVP SCH ×2 (09:21→21:57)
[2018-03-01] MEDS: Cyanocobalamin (Vitamin B-12) 1,000 MCG TAB PER TUBE SCH (09:22)
[2018-03-01] MEDS: Vancomycin HCl 750 MG in Sodium Chloride 0.9% 250 ML 250 ML IVPB SCH ×2 (09:45→21:58)
[2018-03-01] MEDS: Hydrocortisone Sod Succ/PF 100 mg/2 ml Vial IVP SCH ×3 (12:03→23:32)
--- NOTE | 2018-03-01 16:02 | CON ---
DATEOF CONSULTATION: 03/01/2018 HISTORY: A 77-year-old gentleman who was readmitted to the hospital with hypertension, enc ephalopathy, change in mental status. 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 Son states he was getting a fentanyl patch. He thought this was causing some of his confusion, but hospice nurse came by to see him over the last 24-48 hours. Appa rently, she felt he was at his baseline, but because of mental status not improved, the son brought h im to the hospital here. Apparently, he has a diagnosis of UTI. He was hypertensive and placed on Levophed. PAST MEDICAL HISTORY: Pertinent for a cause of the esophagus, ongoing tobacco abuse, COPD, TIA, high cholesterol, depression, anxiety. PAST SURGICAL HISTORY: His previous surgeries include multiple endoscopies in the past. He has a PEG in place. Previous treatment for his carcinoma of the esophagus with radiation and chem otherapy. HOME MEDICATIONS: Include fentanyl, hydrocodone, [place], Lopressor 100 twice a day, Protonix, Zocor, aspirin, Xanax. ALLERGIES: None. SOCIAL HISTORY: As noted tobacco. REVIEW OF SYSTEMS: Otherwise, 10-point negative. PHYSICAL EXAMINATION: VITAL SIGNS: His blood pressure is improved on Levophed to 127/63. This morning, temperature 98, re spirations are 20, sats 95%. CHEST: Extensive rhonchi and crackles. CARDIAC: Normal S1, S2, no gallops. ABDOMEN: Soft. No masses. LABORATORY DATA: White count 10,000, H and H 11 and 36, platelet count of 202. PO2 is 230, pCO2 ___ __, BiPAP. Creatinine is normal. BUN is unremarkable. CK is slightly elevated. Urine is growing gram negative dixie. IMPRESSION: 1. Possible urinary tract infection. 2. Hypertension, probably volume depleted. 3. Tobacco abuse, chronic obstructive pulmonary disease. 4. History of carcinoma of the esophagus. PLAN: Try and taper his Levophed. The patient is still a DNR as per the son. He would like to take the patient to home on hospice once again if able to stabilize his blood pressure and switch him ove r to oral antibiotics. Await results of his urine culture. Consultation note, 70 minutes, 50% spent in direct patient care.
[2018-03-02 05:02] LABS: #Lymphocytes 0.3 thou/uL (1.20-3.40); #Monocytes 0.3 thou/uL (0.11-0.59); #Neutrophils 6.3 thou/uL (1.40-6.50); %Eosinophils 0.1 % (0.0-10.0); %Lymphocytes 4.9 % (21.0-51.0); %Monocytes 4.1 % (0.0-10.0); %Neutrophils 90.9 % (42.0-75.0); Anion Gap 11 mmol/L (10-20); BUN (Urea Nitrogen) 37 mg/dL (8.4-25.7); Calc. Creatinine Clearance 82 mL/min (70-130); Calcium 8.8 mg/dL (7.8-10.44); Carbon Dioxide 21 mmol/L (23-31); Chloride 117 mmol/L (98-107); Estimated GFR-MDRD Greater than 90; Glucose 222 mg/dL (83-110); Hemoglobin 9.2 g/dL (14.0-18.0); Mean Corpuscular HGB CONC 31.6 g/dL (32.0-36.0); Mean Corpuscular Hemoglobin 31.7 pg (27.0-31.0); Mean Platelet Volume 9.4 fL (7.4-10.4); Platelet Count 142 thou/uL (130-400); RBC Distribution Width 15.5 % (11.5-14.5); Red Blood Cell (RBC) Count 2.91 mill/uL (4.70-6.10); Sodium 146 mmol/L (136-145); White Blood Cell (WBC) Count 6.9 thou/uL (4.8-10.8)
[2018-03-02 05:08] LABS: Potassium 2.9 mmol/L (3.5-5.1)
[2018-03-02] MEDS: Sodium Chloride 0.9% 1,000 ML IV SCH ×2 (05:57→10:08)
[2018-03-02] MEDS: Hydrocortisone Sod Succ/PF 100 mg/2 ml Vial IVP SCH ×4 (05:59→23:22)
[2018-03-02] MEDS: MEROPENEM 1 GM/50 ML 1 GM in Premix Bag 1 BAG IVPB SCH (05:59)
[2018-03-02] MEDS: Potassium Chloride 20 MEQ in Premix Bag 1 BAG IVPB SCH ×3 (06:41→14:15)
--- NOTE | 2018-03-02 09:36 | PDOC.PN ---
- Subjective Encounter Start Date: 03/02/18 Encounter Start Time: 09:35 Mr. Contreras was seen today in follow-up of UTI with sepsis. He says he feels better today. He denies abdominal pain. He says his throat is sore, and his mouth is dry, otherwise he is ok. - Objective Resuscitation Status: Resuscitation Status CHEM:Chem Code Only MAR Reviewed: Yes Vital Signs & Weight: Vital Signs (12 hours) Temp 03/02/18 04:00 98.1 F 03/02/18 00:00 98.2 F Weight Admit Weight 153 lb 0.013 oz Weight 152 lb 8.958 oz Most Recent Monitor Data Heart Rate from ECG 56 NIBP 114/56 NIBP BP-Mean 75 Respiration from ECG 32 SpO2 100 I&O: 03/01/18 03/02/18 03/03/18 06:59 06:59 06:59 Intake Total 2103 5203.9 Output Total 625 1585 Balance 1478 3618.9 Result Diagrams: 03/02/18 03:20 03/02/18 03:20 Phys Exam - Physical Examination HEENT: PERRLA Respiratory: no wheezing + rhonchi- scattered, Cardiovascular: RRR, no significant murmur, no rub Gastrointestinal: soft, non-tender, no distention, positive bowel sounds Musculoskeletal: no edema Dx/Plan (1) UTI (urinary tract infection) Status: Acute (2) Sepsis Code(s): A41.9 - SEPSIS, UNSPECIFIED ORGANISM Status: Acute (3) History of esophageal cancer Code(s): Z85.01 - PERSONAL HISTORY OF MALIGNANT NEOPLASM OF ESOPHAGUS Status: Chronic (4) Hypertension Code(s): I10 - ESSENTIAL (PRIMARY) HYPERTENSION Status: Chronic - Plan * UTI with sepsis- improved- he is now off the Levophed drip. Urine culture is growing Proteus, which is sensitive to multiple oral antibiotics * HTN- continue to hold antihypertensives, as his blood pressure is just recovering * Esophageal Cancer- reported to be in remission. * He is stable to move out of the ICU
[2018-03-02] MEDS: Cyanocobalamin (Vitamin B-12) 1,000 MCG TAB PER TUBE SCH (10:06)
[2018-03-02] MEDS: Famotidine/PF 20 mg/2ml Vial SLOW IVP SCH ×2 (10:06→20:42)
[2018-03-02] MEDS: Lactinex Tablet PER TUBE SCH (10:06)
[2018-03-02] MEDS: Folic Acid 1 MG TAB PER TUBE SCH (10:06)
[2018-03-02] MEDS: Enoxaparin Sodium 40 MG/0.4 ML SYRINGE SC SCH (10:06)
[2018-03-02] MEDS: Vancomycin HCl 750 MG in Sodium Chloride 0.9% 250 ML 250 ML IVPB SCH ×2 (10:07→20:57)
--- NOTE | 2018-03-02 12:01 | PRG ---
DATE OF SERVICE: 03/02/2018 SUBJECTIVE: A 77-year-old gentleman this morning is awake, alert and responsive. Denies any pain or discomfort. OBJECTIVE: VITAL SIGNS: Sats are 94% on 4 liters, blood pressure . CHEST: Chest revealed decreased breath sounds without wheezing. CARDIAC: Normal S1, S2. ABDOMEN: Soft, no masses. LABORATORY DATA: White count 6000, H and H 9 and 29, platelet count 42. Potassium 2.9. His urine is growing Proteus. Sensitive to pretty much all the antibiotics. IMPRESSION: Urinary tract infection, sepsis, metastatic carcinoma of the esophagus. PLAN: The patient probably can be switched over to oral antibiotics. He is on hospice care. He can probably be transferred out of the ICU.
[2018-03-02 20:26] LABS: Vancomycin, Trough 14.2 ug/mL
[2018-03-02] MEDS: Cefdinir 300 MG CAP PO SCH (20:42)
[2018-03-03] MEDS: Hydrocortisone Sod Succ/PF 100 mg/2 ml Vial IVP SCH ×2 (05:27→12:59)
[2018-03-03] MEDS: Sodium Chloride 0.9% 1,000 ML IV SCH (05:31)
[2018-03-03] MEDS: Cefdinir 300 MG CAP PO SCH (08:50)
[2018-03-03] MEDS: Enoxaparin Sodium 40 MG/0.4 ML SYRINGE SC SCH (08:50)
[2018-03-03] MEDS: Cyanocobalamin (Vitamin B-12) 1,000 MCG TAB PER TUBE SCH (08:50)
[2018-03-03] MEDS: Vancomycin HCl 750 MG in Sodium Chloride 0.9% 250 ML 250 ML IVPB SCH (08:51)
[2018-03-03] MEDS: Folic Acid 1 MG TAB PER TUBE SCH (08:51)
[2018-03-03] MEDS: Famotidine/PF 20 mg/2ml Vial SLOW IVP SCH (08:51)
[2018-03-03] MEDS: Lactinex Tablet PER TUBE SCH (08:51)
--- NOTE | 2018-03-03 09:52 | PDOC.PN ---
- Subjective Encounter Start Date: 03/03/18 Encounter Start Time: 09:50 Mr. Contreras was seen today in follow-up of UTI with sepsis. He is feeling better this morning. He denies feeling short of breath. - Objective Resuscitation Status: Resuscitation Status CHEM:Chem Code Only MAR Reviewed: Yes Vital Signs & Weight: Vital Signs (12 hours) Temp Pulse Resp BP Pulse Ox 03/03/18 07:31 98.2 F 62 22 H 118/56 L 97 03/03/18 04:18 25 H 99 03/03/18 03:55 25 H 100 03/03/18 03:53 97.8 F 62 28 H 123/44 L 99 03/02/18 23:51 97.3 F L 59 L 26 H 103/44 L 97 Weight Admit Weight 153 lb 0.013 oz Weight 152 lb 8.958 oz Most Recent Monitor Data Heart Rate from ECG 53 NIBP 106/44 NIBP BP-Mean 64 Respiration from ECG 21 SpO2 92 I&O: 03/02/18 03/03/18 03/04/18 06:59 06:59 06:59 Intake Total 5203.9 1870 Output Total 1585 1225 Balance 3618.9 645 Result Diagrams: 03/02/18 03:20 03/02/18 03:20 Additional Labs: Accuchecks 03/03/18 03/03/18 03/02/18 05:36 00:03 10:50 POC Glucose 232 H 220 H 234 H Phys Exam - Physical Examination HEENT: PERRLA + rhonchi bilateral, no wheezing or rales. Cardiovascular: RRR, no significant murmur, no rub Gastrointestinal: soft, non-tender, no distention, positive bowel sounds Musculoskeletal: no edema Dx/Plan (1) UTI (urinary tract infection) Status: Acute (2) Sepsis Code(s): A41.9 - SEPSIS, UNSPECIFIED ORGANISM Status: Acute (3) History of esophageal cancer Code(s): Z85.01 - PERSONAL HISTORY OF MALIGNANT NEOPLASM OF ESOPHAGUS Status: Chronic (4) Hypertension Code(s): I10 - ESSENTIAL (PRIMARY) HYPERTENSION Status: Chronic - Plan * UTI- urine culture is growing Proteus which is sensitve to Most oral antibiotics. * He is off pressors, and is stable for discharge home with Hospice.
--- NOTE | 2018-03-03 10:29 | DIS ---
DATE OF ADMISSION: 02/28/2018 DATE OF DISCHARGE: 03/03/2018 PRIMARY CARE PHYSICIAN: At the [facility]. DISCHARGE DISPOSITION: Home with home hospice. DISCHARGE DIAGNOSES: 1. Urinary tract infection with sepsis. 2. Esophageal cancer. 3. History of hypertension. 4. Dyslipidemia. 5. History of transient ischemic attack. DISCHARGE MEDICATIONS: Include Omnicef 300 mg per tube twice daily for 7 days, folic acid 1 mg per t ube daily, Xanax 0.5 mg per tube twice a day, Zocor 40 mg daily, pantoprazole 20 mg daily, Plavix 75 mg daily and aspirin 325 mg daily. Please note that metoprolol is on hold due to hypotension. PROCEDURES DONE DURING ADMISSION: The patient had a CT angiogram of the chest, which was negative fo r pulmonary embolism. The patient had a CT scan of the brain, which showed no acute intracranial abn ormality. There was some chronic ischemic change. CODE STATUS: DNR. ALLERGIES: No known drug allergies. HOSPITAL COURSE: Mr. Contreras is a pleasant 77-year-old gentleman who has a history of esophageal can cer, status post radiation and chemotherapy. He is reported to be in remission from this. He was br ought into the hospital due to severe weakness. He had been home on home hospice, but his son revoke d this. When he was admitted, he was found to be hypotensive and incoherent. He was started on IV a ntibiotics as well as IV fluids and pressor support. His urine culture grew Proteus, which was sensi tive to multiple oral antibiotics. Once he was stabilized and off pressors, he was able to be moved out of the ICU. His antibiotics were transitioned to an oral antibiotic and he is being discharged b [facility] home. His son plans to resume hospice care due to his severe weakness and debility. He says he only had revoked hospice because he was unhappy with some of the treatment modalities that they were using. He says that they have come to an agreement on that. Therefore, he will be discharged with [facility] and hospice on 03/03/2018.
[2018-03-03 11:02] VITALS: TEMP 97.5
[2018-03-03 15:40] VITALS: BP 161/76
== END 2018-03-03 16:15 | disposition home health service (06) | DRG 871 ==
LOC: ERS 11:09 → CCU 18:52 → IMCU/EMU 03-02 11:10
PROVIDERS: ADMIT Internal Medicine; ATTEND Internal Medicine
PROC: 02HV33Z Insertion of Infusion Device into Superior Vena Cava, Percutaneous Approach (ICD-10-PCS; principal; 2018-02-28)
DX: A41.59 Other Gram-negative sepsis (principal); R65.21 Severe sepsis with septic shock; G93.41 Metabolic encephalopathy; N39.0 Urinary tract infection, site not specified; I24.8 Other forms of acute ischemic heart disease; I73.9 Peripheral vascular disease, unspecified; E78.5 Hyperlipidemia, unspecified; Z66 Do not resuscitate; F41.9 Anxiety disorder, unspecified; F32.9 Major depressive disorder, single episode, unspecified; I10 Essential (primary) hypertension; D53.9 Nutritional anemia, unspecified; I25.10 Atherosclerotic heart disease of native coronary artery without angina pectoris; Z85.01 Personal history of malignant neoplasm of esophagus; Z92.21 Personal history of antineoplastic chemotherapy; Z92.3 Personal history of irradiation; Z86.73 Personal history of transient ischemic attack (TIA), and cerebral infarction without residual deficits; Z87.891 Personal history of nicotine dependence; Z79.02 Long term (current) use of antithrombotics/antiplatelets; Z79.82 Long term (current) use of aspirin; Z79.899 Other long term (current) drug therapy; Z93.1 Gastrostomy status
CPT/HCPCS: 36416; 36556; 51702; 70450; 71045; 71275; 80048; 80053; 80202; 81003; 81015; 82553; 82805; 83605; 83690; 83880; 84484; 85025; 85610; 85730; 87040; 87076; 87077; 87086; 87149; 87186; 93005; 94660; 94760; 96365; 96366; 96368; G8996-GN-CM; G8997-GN-CM; J0696; J1650; J1720; J2185; J3370; J3480; J7050; P9045; S0028